=== PATIENT | male | born 1945 | race Caucasian/White ===

== ENCOUNTER 2017-06-23 13:42 | Outpatient (RCR) | payer MEDICARE, OTHER | END 2017-07-25 16:31 | LOC: WSPT 13:42 | DX: Z89.511 Acquired absence of right leg below knee (principal) | CPT/HCPCS: G8978-GP; G8979-GP; G8980-GP ==

== ENCOUNTER → 2017-07-03 | Outpatient (CLI) | payer MEDICARE, OTHER | LOC: WCC 10:18 | DX: L89.892 Pressure ulcer of other site, stage 2 (principal); M05.20 Rheumatoid vasculitis with rheumatoid arthritis of unspecified site; Z89.511 Acquired absence of right leg below knee; Z79.02 Long term (current) use of antithrombotics/antiplatelets; Z79.82 Long term (current) use of aspirin | CPT/HCPCS: 16847; 17716; 17717; 27510; A6197; A6212; G0463 ==

== ENCOUNTER → 2017-07-09 | Outpatient (CLI) | payer MEDICARE, OTHER | LOC: WCC 08:52 | DX: L89.892 Pressure ulcer of other site, stage 2 (principal); M06.9 Rheumatoid arthritis, unspecified; Z89.511 Acquired absence of right leg below knee | CPT/HCPCS: 17717; A6212; G0463 ==

== ENCOUNTER → 2017-07-16 | Outpatient (CLI) | payer MEDICARE, OTHER | LOC: WCC 08:50 | DX: L89.892 Pressure ulcer of other site, stage 2 (principal); Z89.511 Acquired absence of right leg below knee | CPT/HCPCS: 16847; 17717; A6212; G0463 ==

== ENCOUNTER → 2017-07-23 | Outpatient (CLI) | payer MEDICARE, OTHER | LOC: WCC 08:16 | DX: L97.819 Non-pressure chronic ulcer of other part of right lower leg with unspecified severity (principal); M06.9 Rheumatoid arthritis, unspecified; Z89.511 Acquired absence of right leg below knee | CPT/HCPCS: 16847; 17717; A6212; G0463 ==

== ENCOUNTER → 2017-07-30 | Outpatient (CLI) | payer MEDICARE, OTHER | LOC: WCC 08:32 | DX: L89.892 Pressure ulcer of other site, stage 2 (principal); Z89.511 Acquired absence of right leg below knee; M06.9 Rheumatoid arthritis, unspecified | CPT/HCPCS: 17716; A6212; G0463 ==

== ENCOUNTER → 2017-08-01 | Outpatient (CLI) | payer MEDICARE, OTHER | LOC: WCC 08:52 | DX: L89.892 Pressure ulcer of other site, stage 2 (principal); Z89.511 Acquired absence of right leg below knee | CPT/HCPCS: 17717; 27517; A6207; A6212; G0463 ==

== ENCOUNTER → 2017-08-08 | Outpatient (CLI) | payer MEDICARE, OTHER | LOC: WCC 08-04 09:40 | DX: L89.892 Pressure ulcer of other site, stage 2 (principal); Z89.511 Acquired absence of right leg below knee | CPT/HCPCS: 17717; A6212; G0463 ==

== ENCOUNTER → 2017-08-15 | Outpatient (CLI) | payer MEDICARE, OTHER | LOC: WCC 08:16 | DX: L89.892 Pressure ulcer of other site, stage 2 (principal); Z89.511 Acquired absence of right leg below knee | CPT/HCPCS: 17717; 21064; A6021; A6212; G0463 ==

== ENCOUNTER → 2017-08-22 | Outpatient (CLI) | payer MEDICARE, OTHER | LOC: WCC 08:37 | DX: L89.892 Pressure ulcer of other site, stage 2 (principal); Z89.511 Acquired absence of right leg below knee | CPT/HCPCS: 17717; 27510; A6197; A6212; G0463 ==

== ENCOUNTER → 2017-08-28 | Outpatient (CLI) | payer MEDICARE, OTHER | LOC: WCC 09:22 | DX: L89.892 Pressure ulcer of other site, stage 2 (principal); Z89.511 Acquired absence of right leg below knee | CPT/HCPCS: 17717; A6212; G0463 ==

== ENCOUNTER → 2017-09-03 | Outpatient (CLI) | payer MEDICARE, OTHER | LOC: WCC 12:51 | DX: L89.899 Pressure ulcer of other site, unspecified stage (principal); Z89.511 Acquired absence of right leg below knee | CPT/HCPCS: G0463 ==

== ENCOUNTER 2017-10-22 17:58 | Inpatient (IN) | payer MEDICARE, OTHER ==
[~2017-10-22] VITALS: Ht 177.8 cm; Wt 94.3 kg
[2017-10-22] MEDS ORDERED: PLAVIX 75MG TAB75 MG PO (18:17)
[2017-10-22] MEDS ORDERED: ASPIRIN 81M81 MG/TA2 PO (18:17)
[2017-10-22] MEDS ORDERED: PRIL40 PO (18:17)
[2017-10-22] MEDS ORDERED: METHOTREXA2.5 MG/TAB PO (18:18)
[2017-10-22] MEDS ORDERED: PROAIR HFA0.09 MG/AC IH (18:18)
[2017-10-22 18:51] LABS: BASO # 0.1 (0.0-0.2); EOS % 0.6 % (0-4.0); GRAN # 5.3 (1.4-6.5); HEMOGLOBIN 17.5 g/dl (13.5-18.0); LYMPH # 0.4 (1.2-3.4); LYMPH % 7.1 % (20.0-51.0); MEAN CELL VOLUME 94 fl (80.0-100.0); MEAN CORPUSCULAR HEMOGLOBIN 32 pg (27.0-31.0); MEAN CORPUSCULAR HGB CONC 34 g/dl (33.0-37.0); MEAN PLATELET VOLUME 9.1 fl (7.4-10.4); MONO # 0.3 (0.1-0.6); PLATELET COUNT 110 K/mm3 (130-400); RED BLOOD COUNT 5.41 M/mm3 (4.20-5.60); WHITE BLOOD COUNT 6.2 K/mm3 (4.8-10.8)
[2017-10-22 18:58] LABS: ALANINE AMINOTRANSFERASE 62 U/L (21-72); ALBUMIN 4.9 gm/dL (3.5-5.0); ALKALINE PHOSPHATASE 78 U/L (50-136); ANION GAP 11 mmol/L (7-16); BILIRUBIN,TOTAL 1.8 mg/dL (0.0-1.0); BLOOD UREA NITROGEN 19 mg/dL (9-20); C-REACTIVE PROTEIN < 0.5 mg/dL (0.0-0.9); CALCIUM 9.7 mg/dL (8.4-10.2); CARBON DIOXIDE 26 mmol/L (22-30); CHLORIDE 103 mmol/L (98-107); CREATININE, serum 1.15 mg/dL (0.66-1.25); GLUCOSE 156 mg/dL (74-106); LIPASE 51 U/L (23-300); POTASSIUM 4.6 mmol/L (3.4-5.0); SODIUM 139 mmol/L (137-145)
[2017-10-22 20:38] LABS: COLLECTION METHOD CLEAN CATCH
[2017-10-22 20:45] LABS: MUCOUS Present /lpf; PH 6 (5-8); SQUAMOUS EPITHELIAL None Seen /hpf; URINE APPEARANCE Clear; URINE BACTERIA None Seen /hpf; URINE BILIRUBIN Negative (NEGATIVE); URINE BLOOD Negative (NEGATIVE); URINE COLOR Yellow; URINE GLUCOSE Negative (NEGATIVE); URINE KETONE Negative (NEGATIVE); URINE LEUKOCYTE ESTERASE Negative (NEGATIVE); URINE PROTEIN(semi-quant) Negative (NEGATIVE); URINE RBC 0-2 /hpf; URINE UROBILINOGEN Negative (NEGATIVE); URINE WBC 0-2 /hpf
[2017-10-22 21:51] VITALS: BP 186/97; PULSE 95; TEMP 97.5
[2017-10-22] MEDS ORDERED: RT ADVAIR 228 DISKUS IH (22:30)
[2017-10-22 22:57] VITALS: BP 170/91
[2017-10-23] VITALS (11 sets, daily range): BP systolic 117–169; BP diastolic 59–87; PULSE 81–101; TEMP 98–98.5
[2017-10-23 07:11] LABS: BASO % 0.6 % (0.0-2.0); EOS % 0.2 % (0-4.0); GRAN # 4.2 (1.4-6.5); GRAN % 82.6 % (42.2-75.2); HEMATOCRIT 49.1 % (42.0-52.0); HEMOGLOBIN 16.5 g/dl (13.5-18.0); LYMPH # 0.4 (1.2-3.4); LYMPH % 7.1 % (20.0-51.0); MEAN CELL VOLUME 95 fl (80.0-100.0); MEAN CORPUSCULAR HEMOGLOBIN 32 pg (27.0-31.0); MEAN CORPUSCULAR HGB CONC 34 g/dl (33.0-37.0); MONO # 0.5 (0.1-0.6); MONO % 9.1 % (1.7-9.3); PLATELET COUNT 135 K/mm3 (130-400); RED BLOOD COUNT 5.16 M/mm3 (4.20-5.60); WHITE BLOOD COUNT 5.1 K/mm3 (4.8-10.8)
[2017-10-23 07:21] LABS: CALCIUM 9.3 mg/dL (8.4-10.2); CREATININE, serum 0.93 mg/dL (0.66-1.25); POTASSIUM 3.8 mmol/L (3.4-5.0)
[2017-10-24 05:45] VITALS: BP 129/63; PULSE 77; TEMP 98.5
[2017-10-24 07:47] VITALS: BP 119/66; PULSE 77; TEMP 97.9
[2017-10-24] MEDS ORDERED: ZOFRAN ODT4 MG PO (10:17)
== END 2017-10-24 11:40 | disposition home or self-care (01) | DRG 390 ==
LOC: COL.ER 17:58 → SURG 19:54
PROVIDERS: Emergency Medicine; Nurse Practitioner Family
PROC: 0D9670Z Drainage of Stomach with Drainage Device, Via Natural or Artificial Opening (ICD-10-PCS; principal; 2017-10-22)
DX: K56.600 Partial intestinal obstruction, unspecified as to cause (principal); I10 Essential (primary) hypertension; Z86.718 Personal history of other venous thrombosis and embolism; Z79.01 Long term (current) use of anticoagulants; Z86.711 Personal history of pulmonary embolism; M06.9 Rheumatoid arthritis, unspecified; Z89.511 Acquired absence of right leg below knee; J45.909 Unspecified asthma, uncomplicated; I73.9 Peripheral vascular disease, unspecified; Z85.6 Personal history of leukemia; Z87.891 Personal history of nicotine dependence; D69.6 Thrombocytopenia, unspecified; R73.9 Hyperglycemia, unspecified
CPT/HCPCS: 99222-AI; 99239; A9284; C9113; J0360; J1170; J1650; J2405; J7030; J7050; Q9967

== ENCOUNTER 2017-11-14 13:30 | Outpatient (RCR) | payer MEDICARE, OTHER ==
[~2017-11-14 13:30] MED LIST: ASPIRIN 81M81 MG/TA2 PO; METHOTREXA2.5 MG/TAB PO; PLAVIX 75MG TAB75 MG PO; PRIL40 PO; PROAIR HFA0.09 MG/AC IH; RT ADVAIR 228 DISKUS IH; ZOFRAN ODT4 MG PO
== END 2017-11-21 15:43 | disposition home or self-care (01) ==
LOC: WSPT 13:30
DX: Z47.81 Encounter for orthopedic aftercare following surgical amputation (principal); Z89.511 Acquired absence of right leg below knee; Z97.13 Presence of artificial right leg (complete) (partial); Z79.01 Long term (current) use of anticoagulants; Z79.82 Long term (current) use of aspirin
CPT/HCPCS: G8978-GP; G8979-GP; G8980-GP

== ENCOUNTER → 2017-11-20 | Outpatient (CLI) | payer MEDICARE, OTHER | LOC: COL.PUL 09:39 | DX: J44.9 Chronic obstructive pulmonary disease, unspecified (principal) ==

== ENCOUNTER 2018-02-25 15:04 | Inpatient (IN) | payer MEDICARE, OTHER ==
[~2018-02-25] VITALS: Ht 177.8 cm; Wt 94.6 kg
[2018-02-25 16:11] LABS: BASO % 0.9 % (0.0-2.0); EOS # 0.1 (0.0-0.7); EOS % 3.1 % (0-4.0); GRAN # 3.3 (1.4-6.5); GRAN % 71.7 % (42.2-75.2); HEMATOCRIT 44.8 % (42.0-52.0); HEMOGLOBIN 15.4 g/dl (13.5-18.0); LYMPH # 0.8 (1.2-3.4); LYMPH % 16.6 % (20.0-51.0); MEAN CELL VOLUME 92 fl (80.0-100.0); MEAN CORPUSCULAR HEMOGLOBIN 32 pg (27.0-31.0); MEAN CORPUSCULAR HGB CONC 34 g/dl (33.0-37.0); MEAN PLATELET VOLUME 8.8 fl (7.4-10.4); MONO # 0.3 (0.1-0.6); PLATELET COUNT 130 K/mm3 (130-400); RED BLOOD COUNT 4.88 M/mm3 (4.20-5.60); REDCELL DISTRIBUTION WIDTH-CV 15.1 % (11.5-14.5)
[2018-02-25 16:24] LABS: ALBUMIN 3.8 gm/dL (3.5-5.0); BILIRUBIN,TOTAL 0.6 mg/dL (0.0-1.0); CALCIUM 8.9 mg/dL (8.4-10.2); CREATININE, serum 1.04 mg/dL (0.66-1.25); POTASSIUM 4.4 mmol/L (3.4-5.0); TOTAL PROTEIN 7.1 gm/dL (6.4-8.2)
[2018-02-25] MEDS ORDERED: CLEOCIN HCL300 MG PO (16:54)
[2018-02-25] MEDS ORDERED: MUCINEX 60600 MG/TA1 PO (16:55)
[2018-02-25 19:08] VITALS: BP 172/88; PULSE 103; TEMP 97.6
[2018-02-26] VITALS (9 sets, daily range): BP systolic 110–170; BP diastolic 34–131; PULSE 52–85; TEMP 97.1–97.9
[2018-02-26 06:30] LABS: BASO % 0.9 % (0.0-2.0); EOS # 0.1 (0.0-0.7); EOS % 2.8 % (0-4.0); GRAN # 1.9 (1.4-6.5); HEMATOCRIT 42.4 % (42.0-52.0); HEMOGLOBIN 14.5 g/dl (13.5-18.0); LYMPH # 0.8 (1.2-3.4); LYMPH % 25.2 % (20.0-51.0); MEAN CELL VOLUME 92 fl (80.0-100.0); MEAN CORPUSCULAR HEMOGLOBIN 32 pg (27.0-31.0); MEAN CORPUSCULAR HGB CONC 34 g/dl (33.0-37.0); MONO # 0.3 (0.1-0.6); MONO % 9.5 % (1.7-9.3); PLATELET COUNT 109 K/mm3 (130-400); REDCELL DISTRIBUTION WIDTH-CV 15.1 % (11.5-14.5)
[2018-02-26 06:31] LABS: CALCIUM 8.6 mg/dL (8.4-10.2); CREATININE, serum 0.96 mg/dL (0.66-1.25); POTASSIUM 4.1 mmol/L (3.4-5.0)
[2018-02-27 00:37] VITALS: BP 145/74; PULSE 89; TEMP 98.9
[2018-02-27 06:17] VITALS: BP 131/85; PULSE 77; TEMP 97.7
[2018-02-27 06:43] LABS: BASO % 0.9 % (0.0-2.0); EOS # 0.1 (0.0-0.7); EOS % 3.5 % (0-4.0); GRAN # 2.2 (1.4-6.5); GRAN % 64.8 % (42.2-75.2); HEMATOCRIT 43.9 % (42.0-52.0); HEMOGLOBIN 14.7 g/dl (13.5-18.0); LYMPH # 0.7 (1.2-3.4); LYMPH % 21.7 % (20.0-51.0); MEAN CELL VOLUME 93 fl (80.0-100.0); MEAN CORPUSCULAR HEMOGLOBIN 31 pg (27.0-31.0); MEAN CORPUSCULAR HGB CONC 34 g/dl (33.0-37.0); MEAN PLATELET VOLUME 9.3 fl (7.4-10.4); MONO # 0.3 (0.1-0.6); MONO % 8.5 % (1.7-9.3); PLATELET COUNT 108 K/mm3 (130-400); RED BLOOD COUNT 4.71 M/mm3 (4.20-5.60); REDCELL DISTRIBUTION WIDTH-CV 15.3 % (11.5-14.5)
[2018-02-27 07:02] LABS: CALCIUM 8.7 mg/dL (8.4-10.2); CREATININE, serum 0.97 mg/dL (0.66-1.25); POTASSIUM 3.9 mmol/L (3.4-5.0)
[2018-02-27] MEDS ORDERED: CEPHALEXIN500 M1 PO (09:19)
== END 2018-02-27 10:15 | disposition home or self-care (01) | DRG 256 ==
LOC: COL.ER 15:04 → SURG 18:02
PROVIDERS: Emergency Medicine; Nurse Practitioner; Orthopaedic Surgery; Physician Assistant
PROC: 0Y6S0Z1 Detachment at Left 2nd Toe, High, Open Approach (ICD-10-PCS; principal; 2018-02-26 12:00)
DX: I70.245 Atherosclerosis of native arteries of left leg with ulceration of other part of foot (principal); C91.10 Chronic lymphocytic leukemia of B-cell type not having achieved remission; L03.032 Cellulitis of left toe; I10 Essential (primary) hypertension; L97.528 Non-pressure chronic ulcer of other part of left foot with other specified severity; B95.61 Methicillin susceptible Staphylococcus aureus infection as the cause of diseases classified elsewhere; D69.6 Thrombocytopenia, unspecified; M06.9 Rheumatoid arthritis, unspecified; Z91.19 Patient's noncompliance with other medical treatment and regimen; Z89.511 Acquired absence of right leg below knee; Z86.711 Personal history of pulmonary embolism; Z79.01 Long term (current) use of anticoagulants; Z87.891 Personal history of nicotine dependence
CPT/HCPCS: 99223-AI; 99238; A9284; J0692; J2704; J3010; J3370; J7030; J7050

== ENCOUNTER → 2018-08-20 | Outpatient (CLI) | payer MEDICARE, OTHER ==
[~2018-08-20] MED LIST changes: +CEPHALEXIN500 M1 PO; +CLEOCIN HCL300 MG PO; +MUCINEX 60600 MG/TA1 PO
== END ==
LOC: COL.RAD 08:04
DX: Z13.6 Encounter for screening for cardiovascular disorders (principal)

== ENCOUNTER 2019-02-12 16:14 | Inpatient (IN) | payer MEDICARE, OTHER ==
[~2019-02-12] VITALS: Ht 177.8 cm; Wt 91.5 kg
[2019-02-12 16:48] LABS: BASO # 0.1 (0.0-0.2); BASO % 0.8 % (0.0-2.0); EOS # 0.1 (0.0-0.7); EOS % 1.1 % (0-4.0); GRAN # 5.8 (1.4-6.5); GRAN % 81.9 % (42.2-75.2); LYMPH # 0.7 (1.2-3.4); LYMPH % 10.3 % (20.0-51.0); MEAN CELL VOLUME 93 fl (80.0-100.0); MEAN CORPUSCULAR HGB CONC 35 g/dl (33.0-37.0); MEAN PLATELET VOLUME 9.3 fl (7.4-10.4); MONO # 0.4 (0.1-0.6); MONO % 5.6 % (1.7-9.3); PLATELET COUNT 106 K/mm3 (130-400); RED BLOOD COUNT 5.67 M/mm3 (4.20-5.60); REDCELL DISTRIBUTION WIDTH-CV 16.6 % (11.5-14.5)
[2019-02-12 16:49] LABS: HEMATOCRIT 52.8 % (42.0-52.0); HEMOGLOBIN 18.6 g/dl (13.5-18.0); MEAN CORPUSCULAR HEMOGLOBIN 33 pg (27.0-31.0)
[2019-02-12 17:00] LABS: ALANINE AMINOTRANSFERASE 27 U/L (21-72); ALBUMIN 4.8 gm/dL (3.5-5.0); ALKALINE PHOSPHATASE 83 U/L (50-136); ANION GAP 13 mmol/L (7-16); AST,SGOT 38 U/L (15-37); BILIRUBIN,TOTAL 1.8 mg/dL (0.0-1.0); BLOOD UREA NITROGEN 21 mg/dL (9-20); C-REACTIVE PROTEIN 0.7 mg/dL (0.0-0.9); CALCIUM 9.9 mg/dL (8.4-10.2); CARBON DIOXIDE 23 mmol/L (22-30); CHLORIDE 101 mmol/L (98-107); GLUCOSE 139 mg/dL (74-106); LIPASE 69 U/L (23-300); POTASSIUM 4.2 mmol/L (3.4-5.0); SODIUM 137 mmol/L (137-145); TOTAL PROTEIN 8.3 gm/dL (6.4-8.2)
[2019-02-12 17:10] LABS: TROPONIN-I < 0.012 ng/mL (0.000-0.035)
[2019-02-12] MEDS ORDERED: METHOTREXA2.5 MG/TAB PO (18:19)
[2019-02-12 20:00] VITALS: BP 137/82; PULSE 88; TEMP 97.8
[2019-02-12 20:20] LABS: COLLECTION METHOD CLEAN CATCH
--- NOTE | 2019-02-12 20:20 | NUR ---
Patient arrived to surgical floor at approximately 1915. Patient assessed. Hypoactive bowel sounds. Complaining of abdominal pain, rated as a 7, and comlaining of nausea. Given PRN Zofran and Morphine as requested. UA obtained and taken to lab. Patient had approximately 800 mls of emesis, brown in color. Declined wanting NG tube to be placed at time of assessment, will reapproach. Denie having SOB and dyspnea. 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 Stump does have a dry callous, and patient states it has been there. Patient given urinal and emesis basin. Educated on use of call light as well as bed controls. Voices no needs or concerns at this time.
[2019-02-12 20:34] LABS: MUCOUS Present /lpf; PH 5 (5-8); SQUAMOUS EPITHELIAL None Seen /hpf; URINE APPEARANCE Clear; URINE BACTERIA None Seen /hpf; URINE BILIRUBIN Negative (NEGATIVE); URINE BLOOD Negative (NEGATIVE); URINE COLOR Yellow; URINE GLUCOSE Negative (NEGATIVE); URINE KETONE Negative (NEGATIVE); URINE LEUKOCYTE ESTERASE Negative (NEGATIVE); URINE NITRATE Negative (NEGATIVE); URINE PROTEIN(semi-quant) Negative (NEGATIVE); URINE RBC 0-2 /hpf; URINE UROBILINOGEN Negative (NEGATIVE)
[2019-02-12 21:06] VITALS: BP 137/82; PULSE 88; TEMP 97.8
--- NOTE | 2019-02-12 22:33 | NUR ---
NG tube placed at this time to right nostril. At 55 cm rocky. Secured to nose. On low intermittent suction. Patient tolerated well. Denie having any needs or concerns at this time. Call light is within reach.
[2019-02-12 23:39] VITALS: BP 160/98; PULSE 105; TEMP 97.4
--- NOTE | 2019-02-13 00:04 | NUR ---
Patient tolerating NG tube with intermittent low suction well. Denies having pain and discomfort. Continues to suction brown/yellow contents at this time. Patient has remained NPO. LR continues per orders. No further emesis. Denies having any needs or concerns at this time. Call light is within reach.
[2019-02-13 03:52] VITALS: BP 100/64; PULSE 107; TEMP 99.7
--- NOTE | 2019-02-13 06:05 | NUR ---
Continues to be tolerating NG tube well. Contents have been brown in color, and are now changing to more of a green color. Denies having nausea. Does have an aching pain to abdomen, rated as a 5. Patient has not had any BM this shift. Has been using bedside urinal. Denies having any needs or concerns at this time. Sitting up in bed, call light is within reach.
[2019-02-13 07:52] LABS: HEMATOCRIT 49.6 % (42.0-52.0); HEMOGLOBIN 16.9 g/dl (13.5-18.0); MEAN CELL VOLUME 95 fl (80.0-100.0); MEAN CORPUSCULAR HEMOGLOBIN 32 pg (27.0-31.0); MEAN CORPUSCULAR HGB CONC 34 g/dl (33.0-37.0); MEAN PLATELET VOLUME 9.8 fl (7.4-10.4); PLATELET COUNT 115 K/mm3 (130-400); RED BLOOD COUNT 5.23 M/mm3 (4.20-5.60); REDCELL DISTRIBUTION WIDTH-CV 16.4 % (11.5-14.5)
[2019-02-13 08:05] LABS: CREATININE, serum 1.45 (0.66-1.25)
[2019-02-13 08:09] LABS: POTASSIUM 4.3 mmol/L (3.4-5.0)
[2019-02-13 08:26] VITALS: BP 110/66; PULSE 94; TEMP 98
[2019-02-13 11:38] VITALS: BP 107/56; PULSE 86; TEMP 98.2
--- NOTE | 2019-02-13 11:56 | NUR ---
Visited with the patient, talked about his past problems with blood clots and the amputation of his leg. Provided spiritual care and prayed with him.
--- NOTE | 2019-02-13 14:56 | NUR ---
Plan: Patient reports that his plan is to return home. Assessment: SW met with patient about DC plan. Patient reports that his care support is his DTR Clemencia Tellez . Patient reports his PCP is Fadumo Durand and he uses [facility] for RX. Patient reports having a prothestic leg but denies any other DME use. Patient shares that he has inhalers prx by DR. Patient reports that his grandson will transport him home. Indicated that he live [place] outside of town. Patient reports that POA is his DTR. Patient denies the use or need for home health services. Action: SW did not identify any other concerns. SW educated patient of resources in area.
[2019-02-13 16:20] VITALS: BP 124/67; PULSE 87; TEMP 97.5
[2019-02-13 19:29] VITALS: BP 104/61; PULSE 90; TEMP 98.2
--- NOTE | 2019-02-13 20:41 | NUR ---
Patient assessed. Denies having pain and discomfort. Reports feelings much better today than yesterday. Denies having any nausea. Skin color is no longer pale. NG tube continues on low intermittent suction per orders. Contents are green in color. Continues to be NPO. Bowel sounds are active x 4. Abdomen is round, soft, non-distended, and non-tender. Reports he has has multiple large loose BMs in the past few hours. LR continues to peripheral IV to left hand per orders. Denies having any needs or concerns at this time. Resting in bed at this time. Call light is within reach.
[2019-02-14 00:05] VITALS: BP 124/71; PULSE 87; TEMP 97.5
--- NOTE | 2019-02-14 00:07 | NUR ---
Patient given PRN APAP for generalized pain as requested. NG suction turned off for approximately 30 minutes after medication was taken, then turned back on. Resting in bed with eyes closed at this time. Call light is within reach.
[2019-02-14 04:33] VITALS: BP 127/57; PULSE 61; TEMP 98.4
--- NOTE | 2019-02-14 06:19 | NUR ---
Continues to deny having pain and discomfort. No further bowel movements this shift. Denies having nausea and upset stomach. NG tube in place and tolerating well. Resting in bed with eyes closed at this time. Call light is within reach.
[2019-02-14 07:30] LABS: HEMATOCRIT 41.8 % (42.0-52.0); MEAN CELL VOLUME 97 fl (80.0-100.0); MEAN CORPUSCULAR HEMOGLOBIN 32 pg (27.0-31.0); MEAN CORPUSCULAR HGB CONC 33 g/dl (33.0-37.0); MEAN PLATELET VOLUME 9.7 fl (7.4-10.4); PLATELET COUNT 81 K/mm3 (130-400); RED BLOOD COUNT 4.31 M/mm3 (4.20-5.60); REDCELL DISTRIBUTION WIDTH-CV 16.2 % (11.5-14.5)
[2019-02-14 07:34] LABS: HEMOGLOBIN 13.8 g/dl (13.5-18.0)
[2019-02-14 07:37] LABS: CALCIUM 8.5 mg/dL (8.4-10.2); CREATININE, serum 1.29 (0.66-1.25); POTASSIUM 3.6 mmol/L (3.4-5.0)
[2019-02-14 07:58] VITALS: BP 131/62; PULSE 82; TEMP 97.3
--- NOTE | 2019-02-14 09:00 | NUR ---
Dr. Nieto saw patient. No c/o pain or nausea. MARGE nogueira'bren. Started on clear liquids slowly.
[2019-02-14 11:28] VITALS: BP 128/67; PULSE 82; TEMP 97.8
[2019-02-14 15:37] VITALS: BP 129/93; PULSE 95; TEMP 98.6
--- NOTE | 2019-02-14 18:00 | NUR ---
Took low fiber diet without nausea or abdominal pain. Ambulated in halls with standby assist. Had one loose stool. Dismissed to home with daughter.
== END 2019-02-14 18:00 | disposition home or self-care (01) | DRG 390 ==
LOC: COL.ER 16:14 → SURG 18:03
PROVIDERS: Emergency Medicine; ADMIT Surgery
PROC: 0D9670Z Drainage of Stomach with Drainage Device, Via Natural or Artificial Opening (ICD-10-PCS; principal; 2019-02-12)
DX: K56.600 Partial intestinal obstruction, unspecified as to cause (principal); Z66 Do not resuscitate; E86.0 Dehydration; I10 Essential (primary) hypertension; I73.9 Peripheral vascular disease, unspecified; M06.9 Rheumatoid arthritis, unspecified; Z89.511 Acquired absence of right leg below knee; J45.909 Unspecified asthma, uncomplicated; Z87.891 Personal history of nicotine dependence; Z86.711 Personal history of pulmonary embolism; Z79.01 Long term (current) use of anticoagulants; Z85.6 Personal history of leukemia
CPT/HCPCS: J1650; J2270; J2405; J3010; J7030; J7120; Q9967

== ENCOUNTER 2020-01-31 16:58 | Inpatient (IN) | payer MEDICARE, OTHER ==
[~2020-01-31] VITALS: Ht 177.8 cm; Wt 90.2 kg
[2020-01-31] VITALS (93 sets, daily range): O2SAT 86–98
[2020-01-31 18:16] LABS: HEMATOCRIT 48.3 % (42.0-52.0); HEMOGLOBIN 15.8 g/dl (13.5-18.0); MEAN CELL VOLUME 98 fl (80.0-100.0); MEAN CORPUSCULAR HEMOGLOBIN 32 pg (27.0-31.0); MEAN CORPUSCULAR HGB CONC 33 g/dl (33.0-37.0); MEAN PLATELET VOLUME 9.3 fl (7.4-10.4); PLATELET COUNT 95 K/mm3 (130-400); RED BLOOD COUNT 4.95 M/mm3 (4.20-5.60); REDCELL DISTRIBUTION WIDTH-CV 16.3 % (11.5-14.5)
[2020-01-31 18:23] LABS: ALBUMIN 3.9 gm/dL (3.5-5.0); BILIRUBIN,TOTAL 3.4 mg/dL (0.0-1.0); CALCIUM 8.7 mg/dL (8.4-10.2); CREATININE, serum 1.7 (0.66-1.25); POTASSIUM 4.5 mmol/L (3.4-5.0); TOTAL PROTEIN 6.6 gm/dL (6.4-8.2)
[2020-01-31 19:18] LABS: BAND 26 % (0-10); LYMPHOCYTE 5 % (20.0-51.0); NEUTROPHILS 67 % (42.0-75.2)
[2020-01-31 19:20] LABS: PLATELET ESTIMATE DECREASED (NORMAL)
[2020-01-31 19:21] LABS: ANISOCYTOSIS 1+; HYPOCHROMIA 1+
[2020-01-31 19:33] LABS: ARTERIAL BLOOD GAS BASE EXCESS -4.6 (-2-2); ARTERIAL BLOOD GAS HCO3 19.1 meq/L (22-26); ARTERIAL BLOOD GAS PCO2 31.9 mmHg (35-45)
[2020-01-31 20:33] LABS: COLLECTION METHOD CLEAN CATCH
[2020-01-31 21:13] LABS: MUCOUS Present /lpf; PH 5 (5-8); SQUAMOUS EPITHELIAL 0-2 /hpf; URINE APPEARANCE Hazy; URINE BACTERIA None Seen /hpf; URINE BILIRUBIN Negative (NEGATIVE); URINE BLOOD Negative (NEGATIVE); URINE COLOR Amber; URINE GLUCOSE Negative (NEGATIVE); URINE KETONE Negative (NEGATIVE); URINE LEUKOCYTE ESTERASE Negative (NEGATIVE); URINE NITRATE Negative (NEGATIVE); URINE PROTEIN(semi-quant) 1+ (NEGATIVE); URINE RBC 0-2 /hpf; URINE UROBILINOGEN Negative (NEGATIVE)
--- NOTE | 2020-01-31 22:00 | NUR ---
Patient arrives at this time via ED cart. Patient transfers self to unit bed via slide. He is very tachypneic and SOA. 5L NC. Patient clothes removed and placed in a yellow gown. HOB elevated to 60 degrees. Vitals are stable. Assessment complete in admission B. Med rec and allergies complete. Central line placed by Dr. Quintanilla. Time out completed. Browning catheter also placed. Patient tolerated well, urine return noted. Securement device in place. Patient placed on Airvo. No further needs at this time. Will continue to monitor. Call light within reach.
--- NOTE | 2020-01-31 23:20 | NUR ---
AirVo2 high flow nasal cannula started at this time. Pt's WOB decreased and respirations decreased from 30s to 20s.
[2020-01-31 23:51] LABS: INR 1.5 (0.8-3.0); PROTHROMBIN TIME 17.6 SECONDS (9.7-12.8)
[2020-02-01] VITALS (1099 sets, daily range): BP systolic 92–150; BP diastolic 65–96; PULSE 102–125; TEMP 97.7–101.6; O2SAT 71–100
[2020-02-01 02:34] LABS: ARTERIAL BLD GAS TCO2 CT 18.4; ARTERIAL BLOOD GAS BASE EXCESS -5.7 (-2-2); ARTERIAL BLOOD GAS HCO3 17.5 meq/L (22-26); ARTERIAL BLOOD GAS PCO2 28.9 mmHg (35-45); ARTERIAL BLOOD GAS PO2 86.3 mmHg (80-100)
[2020-02-01 04:24] LABS: HEMATOCRIT 42.5 % (42.0-52.0); MEAN CELL VOLUME 101 fl (80.0-100.0); MEAN CORPUSCULAR HEMOGLOBIN 32 pg (27.0-31.0); MEAN CORPUSCULAR HGB CONC 32 g/dl (33.0-37.0); MEAN PLATELET VOLUME 9.7 fl (7.4-10.4); PLATELET COUNT 66 K/mm3 (130-400); RED BLOOD COUNT 4.21 M/mm3 (4.20-5.60); REDCELL DISTRIBUTION WIDTH-CV 16.6 % (11.5-14.5)
[2020-02-01 04:44] LABS: ALBUMIN 3.3 gm/dL (3.5-5.0); BILIRUBIN,TOTAL 2.3 mg/dL (0.0-1.0); CREATININE, serum 1.56 (0.66-1.25); POTASSIUM 4.9 mmol/L (3.4-5.0); TOTAL PROTEIN 5.7 gm/dL (6.4-8.2)
[2020-02-01 04:49] LABS: PROTHROMBIN TIME 23.3 SECONDS (9.7-12.8)
[2020-02-01 04:51] LABS: HEMOGLOBIN 13.5 g/dl (13.5-18.0)
--- NOTE | 2020-02-01 05:00 | NUR ---
Patient is much better this morning. He is completely alert and oreinted now when he was having some confusion during the night. He is able to answer all questions appropriately. Water provided. Vitals have remained stable and heart rate has improved. no further needs at this time. Will continue to monitor. Call light within reach.
[2020-02-01 05:37] LABS: BAND 21 % (0-10); LYMPHOCYTE 23 % (20.0-51.0); METAMYELOCYTE 7 % (0-0); MYELOCYTE 1 % (0-0); NEUTROPHILS 38 % (42.0-75.2); PLATELET ESTIMATE DECREASED (NORMAL)
[2020-02-01 05:42] LABS: ARTERIAL BLD GAS O2 SATURATION 94.9 % (92-100); ARTERIAL BLD GAS TCO2 CT 20.1; ARTERIAL BLOOD GAS BASE EXCESS -6.9 (-2-2); ARTERIAL BLOOD GAS HCO3 18.9 meq/L (22-26); ARTERIAL BLOOD GAS PCO2 38.7 mmHg (35-45); ARTERIAL BLOOD GAS PO2 82.3 mmHg (80-100); ARTERIAL BLOOD GAS pH 7.31 (7.35-7.45)
--- NOTE | 2020-02-01 07:25 | NUR ---
Bedside report recieved from ELIN Olivares. Patient on AirVo at 47% and 60L. He denies, dyspnea, pain ,or needs at this time. RIJ triple lumen with dressing reinforced with plastic tape noted to neck. MIVF running at ordered rate. Browning to dependent drainage with positive UO.
--- NOTE | 2020-02-01 08:30 | NUR ---
Pt has been taking methotrexate as home med with last dose reported on 01/29/2020. This does require chemotherapy precautions be observed for 3 days after administration for urine and 7 days after administration for feces. Phone call to Margie in ICU to advise of this information and required precautions.
--- NOTE | 2020-02-01 08:30 | NUR ---
Dr. Quintanilla rounds at this time. Orders as entered CPOE.
[2020-02-01 08:55] LABS: PATHOLOGY DIFF REVIEW OK
--- NOTE | 2020-02-01 09:53 | NUR ---
Dr. Beard rounds at this time. Orders as entered CPOE.
--- NOTE | 2020-02-01 14:18 | NUR ---
The patient is in isolation. PRODUCTION LINE OPERATOR student contacted the patient's daughter, Nuris to complete initial intake. The patient lives in [place] with Nuris and her family. The patient has a stairlift and is independent with ADLs. The patient's PCP is Dr. Durand and patient receives medications from [facility]. The patient does not have advanced directives in the EMR but Nuris reports they are completed. PRODUCTION LINE OPERATOR student contacted Dr. Durand's office to request a copy if they have them, left message. Nuris states if the PCP office does not have it she can look and bring it in. senior web services developer will continue to follow.
--- NOTE | 2020-02-01 16:04 | NUR ---
Dr. Quintanilla called regarding patient's increasing tachypnea, tachycardia and WOB. Relayed are most recent VBG results. TORB to place patient on BiPap 01/08 RR24 and to repeat VBG and ABG one hour after initiation. RT is notified.
--- NOTE | 2020-02-01 16:30 | NUR ---
Patient placed on BiPap per RT.
[2020-02-01 18:03] LABS: ARTERIAL BLD GAS O2 SATURATION 98.7 % (92-100); ARTERIAL BLD GAS TCO2 CT 17.4; ARTERIAL BLOOD GAS BASE EXCESS -6.1 (-2-2); ARTERIAL BLOOD GAS HCO3 16.7 meq/L (22-26); ARTERIAL BLOOD GAS PCO2 25.9 mmHg (35-45); ARTERIAL BLOOD GAS PO2 116.4 mmHg (80-100); ARTERIAL BLOOD GAS pH 7.43 (7.35-7.45)
--- NOTE | 2020-02-01 18:23 | NUR ---
Dr. Quintanilla called with most recent VBG and ABG results. MD recomendations to encourage patient to use BiPap for NOC shift with brief AirVo breaks. Care ongoing.
--- NOTE | 2020-02-01 19:18 | NUR ---
Bedside report received from ELIN Ham
[2020-02-02] VITALS (1176 sets, daily range): BP systolic 99–112; BP diastolic 72–78; PULSE 89–105; TEMP 98.5–99.2; O2SAT 78–100
--- NOTE | 2020-02-02 | NUR ---
Patient resting on bipap. no changes on exam. No complaints of pain or signs of distress. Vitals are stable. No further needs. Will continue to monitor. Call light within reach.
[2020-02-02 05:13] LABS: MEAN CELL VOLUME 100 fl (80.0-100.0); MEAN CORPUSCULAR HGB CONC 32 g/dl (33.0-37.0); MEAN PLATELET VOLUME 10.6 fl (7.4-10.4); PLATELET COUNT 55 K/mm3 (130-400); RED BLOOD COUNT 3.41 M/mm3 (4.20-5.60)
[2020-02-02 05:20] LABS: HEMATOCRIT 34.2 % (42.0-52.0); MEAN CORPUSCULAR HEMOGLOBIN 32 pg (27.0-31.0)
[2020-02-02 05:21] LABS: INR 1.8 (0.8-3.0); PROTHROMBIN TIME 21.6 SECONDS (9.7-12.8)
[2020-02-02 05:24] LABS: ALBUMIN 2.7 gm/dL (3.5-5.0); CALCIUM 7.8 mg/dL (8.4-10.2); CREATININE, serum 1.13 (0.66-1.25); POTASSIUM 4.2 mmol/L (3.4-5.0); TOTAL PROTEIN 5.2 gm/dL (6.4-8.2)
[2020-02-02 05:35] LABS: ARTERIAL BLD GAS O2 SATURATION 99.2 % (92-100); ARTERIAL BLOOD GAS HCO3 21.9 meq/L (22-26); ARTERIAL BLOOD GAS PCO2 34.9 mmHg (35-45); ARTERIAL BLOOD GAS pH 7.42 (7.35-7.45)
[2020-02-02 05:38] LABS: ARTERIAL BLOOD GAS PO2 161.9 mmHg (80-100)
[2020-02-02 05:42] LABS: BAND 10 % (0-10); EOSINOPHIL 1 % (0-4); LYMPHOCYTE 13 % (20.0-51.0); METAMYELOCYTE 9 % (0-0); MYELOCYTE 1 % (0-0); NEUTROPHILS 66 % (42.0-75.2); PLATELET ESTIMATE DECREASED (NORMAL)
--- NOTE | 2020-02-02 07:16 | NUR ---
Bedside report given to ELIN Philip
--- NOTE | 2020-02-02 09:35 | NUR ---
Quintanilla in to eval. IVF rate decreased to 42ml/hr. Discussed L foot dorsalis pedis and posterior tib pulses RN unable to obtain with doppler. Pt does not have feeling from ankle down. Orders to obtain arterial study. Pt uses bedpa for med loose-paste like stool. Sample obtained for studies.
--- NOTE | 2020-02-02 11:44 | NUR ---
PT AIRVO HIGH FLOW NC DECREASED TO 50L WITH 40% FIO2. PT DANIEL WELL. SPO2 100%, RR 25, HR 102. WILL CONTINUE TO MONITOR
--- NOTE | 2020-02-02 13:24 | NUR ---
PT/OT ordered. manager financial services will continue to follow.
[2020-02-03] VITALS (1080 sets, daily range): BP systolic 90–142; BP diastolic 65–84; PULSE 90–103; TEMP 97.7–100.3; O2SAT 67–100
[2020-02-03 04:36] LABS: ARTERIAL BLD GAS O2 SATURATION 97.6 % (92-100); ARTERIAL BLOOD GAS BASE EXCESS -0.3 (-2-2); ARTERIAL BLOOD GAS HCO3 23.9 meq/L (22-26); ARTERIAL BLOOD GAS PCO2 37.3 mmHg (35-45); ARTERIAL BLOOD GAS PO2 98.6 mmHg (80-100); ARTERIAL BLOOD GAS pH 7.42 (7.35-7.45)
[2020-02-03 06:04] LABS: HEMOGLOBIN 10.3 g/dl (13.5-18.0); MEAN CELL VOLUME 101 fl (80.0-100.0); MEAN CORPUSCULAR HEMOGLOBIN 33 pg (27.0-31.0); MEAN CORPUSCULAR HGB CONC 33 g/dl (33.0-37.0); MEAN PLATELET VOLUME 10.7 fl (7.4-10.4); PLATELET COUNT 60 K/mm3 (130-400); RED BLOOD COUNT 3.15 M/mm3 (4.20-5.60); REDCELL DISTRIBUTION WIDTH-CV 15.9 % (11.5-14.5)
[2020-02-03 06:11] LABS: INR 1.4 (0.8-3.0); PROTHROMBIN TIME 16.9 SECONDS (9.7-12.8)
[2020-02-03 06:13] LABS: HEMATOCRIT 31.7 % (42.0-52.0)
[2020-02-03 06:18] LABS: ALBUMIN 2.7 gm/dL (3.5-5.0); BILIRUBIN,TOTAL 0.8 mg/dL (0.0-1.0); CALCIUM 8.3 mg/dL (8.4-10.2); CREATININE, serum 1.02 (0.66-1.25); POTASSIUM 3.8 mmol/L (3.4-5.0); TOTAL PROTEIN 5.2 gm/dL (6.4-8.2)
--- NOTE | 2020-02-03 07:10 | NUR ---
REPORT GIVEN TO SANDRA HERNANDEZ.
--- NOTE | 2020-02-03 07:10 | NUR ---
Report recieved from ELIN Thibodeaux. Patient sleeping at this time. MIVF running to [facility] triple lumen central line without complication noted. 4LNC O2 in place. Browning output noted to dependent drainage. Bed in low and locked position, call light within reach, rails up x3. Care resumed.
[2020-02-03 07:23] LABS: BAND 14 % (0-10); LYMPHOCYTE 11 % (20.0-51.0); NEUTROPHILS 74 % (42.0-75.2)
[2020-02-03 07:24] LABS: PLATELET ESTIMATE DECREASED (NORMAL)
--- NOTE | 2020-02-03 07:45 | NUR ---
Dr. Noel rounds at this time. MD indicates he will sign off care at this time and patient may follow up as outpatient following stay.
--- NOTE | 2020-02-03 08:15 | NUR ---
Dr. Quintanilla rounds at this time. Orders as entered CPOE.
--- NOTE | 2020-02-03 10:20 | NUR ---
Dr. Beard rounds at this time. Orders as entered CPOE. Katherine, turn operator is consulted regarding patient's isolation status. She approves removal of negative pressure and airborne precautions with maintained droplet precautions. Dr. Beard is agreeable to this.
--- NOTE | 2020-02-03 10:57 | NUR ---
The patient has orders to transfer to medical floor. PT/OT will do evaluations as soon as the patient precautions change. Will continue to monitor.
--- NOTE | 2020-02-03 11:15 | NUR ---
Dr. Quintanilla contacted per request of Katherine mold chipper for opinion and approval to remove patient from airborne precaution. is agreeable with this and maintenance of droplet precautions.
--- NOTE | 2020-02-03 13:56 | NUR ---
Vancomycin Follow-up Pharmacy Note Current regimen: Vancomycin 1.5 gm IV q12h Vancomycin trough: 13.55 Adjustments: Will increase Vancomycin to 1.75 gm IV q12h. Pharmacy will continue to monitor and check a Vancomycin trough on 02/05/20.
--- NOTE | 2020-02-03 15:55 | NUR ---
Dr. Tran calls and is provided update as requested. No new orders recieved.
--- NOTE | 2020-02-03 21:00 | NUR ---
TRANSFER FROM ICU. ORIENTED TO ROOM. ASSESSMENT COMPLETE. DENIES NEEDS AT THIS TIME.
[2020-02-04 04:30] VITALS: BP 135/71; PULSE 98; TEMP 99.4
[2020-02-04 06:32] LABS: HEMOGLOBIN 10.6 g/dl (13.5-18.0); MEAN CELL VOLUME 101 fl (80.0-100.0); MEAN CORPUSCULAR HEMOGLOBIN 32 pg (27.0-31.0); MEAN CORPUSCULAR HGB CONC 32 g/dl (33.0-37.0); MEAN PLATELET VOLUME 10.8 fl (7.4-10.4); PLATELET COUNT 62 K/mm3 (130-400); RED BLOOD COUNT 3.27 M/mm3 (4.20-5.60); REDCELL DISTRIBUTION WIDTH-CV 15.9 % (11.5-14.5)
[2020-02-04 06:46] LABS: CALCIUM 8.5 mg/dL (8.4-10.2); CREATININE, serum 0.9 (0.66-1.25); POTASSIUM 3.7 mmol/L (3.4-5.0)
[2020-02-04 06:47] LABS: HEMATOCRIT 33.1 % (42.0-52.0)
[2020-02-04 07:27] LABS: BAND 20 % (0-10); EOSINOPHIL 1 % (0-4); LYMPHOCYTE 8 % (20.0-51.0); METAMYELOCYTE 5 % (0-0); NEUTROPHILS 53 % (42.0-75.2); NUCLEATED RED BLOOD CELL 1 (0-6); PLATELET ESTIMATE DECREASED (NORMAL)
[2020-02-04 08:14] VITALS: BP 120/69; PULSE 104; TEMP 98
--- NOTE | 2020-02-04 11:25 | NUR ---
JUVE met with the patient to review discharge plan and to discuss PT/OT's recommendation of home with home health, if able. JUVE discussed home health and post-acute rehab. The patient reports that he is probably going to need some post-acute rehab when ready to discharge. JUVE provided the patient with Medicare[employer]'s list of SNF's in the [facility]. The patient reports that he needs to look over the list some and requested that JUVE contact his daughter, Nuris, to review the list with her. JUVE contacted Nuris and updated her on the patient's decision for SNF. She was supportive of his decision. JUVE reviewed Medicare.gov's list with Nuris. Nuris preferred 1) [facility] 2) [facility]. JUVE then met with the patient to inform him of his daughter's preferences. The patient agreed to her preferences. JUVE presented and explained the Patient Choice Form to the patient. The patient chose 1) [facility] 2) [facility]. Patient Choice Form signed by the patient. JUVE consulted IPR Director, Liana. JUVE contacted and faxed a referral to Manav at [facility]. SW awaiting their screens.
[2020-02-04 11:58] VITALS: BP 151/75; PULSE 103; TEMP 98.4
[2020-02-04 16:14] VITALS: BP 174/95; PULSE 100; TEMP 99.7
[2020-02-04 20:01] VITALS: BP 152/85; PULSE 107; TEMP 98.9
--- NOTE | 2020-02-04 21:41 | NUR ---
PT BROUGHT LOTION AND ICE WATER PER PT REQUEST. PT URINAL EMPTIED TWICE, PT STATED "IT'S GETTING EASIER TO URINATE". PT DENIES PAIN OR DISCOMFORT, BED IN LOW POSITION, BIPAP PLACED ON AGAIN AFTER PILLS TAKEN. TABLE AT BEDSIDE ALONG WITH PERSONAL BELONGINGS. WHEEZES HEARD UPON AUSCULATION. NO OTHER NEEDS AT THIS TIME.
[2020-02-04 23:52] VITALS: BP 132/101; BP 142/81; PULSE 98; TEMP 99.1
[2020-02-05 04:02] VITALS: BP 131/77; PULSE 73; TEMP 98.5
--- NOTE | 2020-02-05 05:13 | NUR ---
UNEVENTFUL SHIFT, PT UTILIZED BIPAP, WATER AT BEDSIDE WITH TABLE, BED IN LOWEST POSITION, STILL HAVING PRODUCTIVE COUGH. NO OTHER NEEDS AT THIS TIME.
[2020-02-05 06:57] LABS: HEMOGLOBIN 11.2 g/dl (13.5-18.0); MEAN CELL VOLUME 101 fl (80.0-100.0); MEAN CORPUSCULAR HEMOGLOBIN 32 pg (27.0-31.0); MEAN CORPUSCULAR HGB CONC 32 g/dl (33.0-37.0); MEAN PLATELET VOLUME 10.1 fl (7.4-10.4); PLATELET COUNT 72 K/mm3 (130-400); RED BLOOD COUNT 3.52 M/mm3 (4.20-5.60)
[2020-02-05 07:02] LABS: HEMATOCRIT 35.4 % (42.0-52.0)
[2020-02-05 07:13] LABS: CALCIUM 8.5 mg/dL (8.4-10.2); CREATININE, serum 0.79 (0.66-1.25); POTASSIUM 3.7 mmol/L (3.4-5.0)
[2020-02-05 08:16] VITALS: BP 144/76; PULSE 97; TEMP 98.6
[2020-02-05 10:47] LABS: ANISOCYTOSIS 1+; BAND 7 % (0-10); LYMPHOCYTE 23 % (20.0-51.0); NEUTROPHILS 65 % (42.0-75.2); PLATELET ESTIMATE DECREASED (NORMAL)
[2020-02-05 12:22] VITALS: BP 153/89; PULSE 108; TEMP 100.4
--- NOTE | 2020-02-05 14:51 | NUR ---
SW faxed updates to [facility].
[2020-02-05 15:43] VITALS: TEMP 98.9
--- NOTE | 2020-02-05 17:08 | NUR ---
PT HAS BEEN AWAKE ALL DAY HAS BEEN ON ROOM AIR, SATS AROUND 90%. PT REMAINS COUGHING UP ALOT OF MUCUS THIS SHIFT. HAD A BLOODY NOSE EARILIER THIS AM, GOT PT SOME SALINE NASEL SPRAY. REPEAT CHEST XRAY THIS AM. PT STARTED SOME PREDISONE AND LASIX TODAY. PT HAD LOW GRADE FEVER, NO INTERVENTIONS DONE AND UPON RECHECK PT WAS FEVER FREE. PT HAS BEEN VOIDING WELL AND AFTER LASIX DID HAVE NOTED INCREASE IN URINE AFTERWARDS.
[2020-02-05 19:27] VITALS: BP 140/84; PULSE 102; TEMP 97.9
[2020-02-05 22:43] VITALS: BP 160/87; PULSE 94; TEMP 97.7
[2020-02-06 03:05] VITALS: BP 112/69; PULSE 80; TEMP 99
--- NOTE | 2020-02-06 05:56 | NUR ---
PT AFEBRILE. NO DYSPNEA AT REST. COMPLIANT WITH BiPAP. HEART RATE SINUS RHYTHM.
[2020-02-06 06:38] LABS: CALCIUM 8.5 mg/dL (8.4-10.2); CREATININE, serum 0.79 (0.66-1.25); POTASSIUM 3.7 mmol/L (3.4-5.0)
[2020-02-06 06:59] LABS: HEMOGLOBIN 11.8 g/dl (13.5-18.0); MEAN CELL VOLUME 100 fl (80.0-100.0); MEAN CORPUSCULAR HEMOGLOBIN 33 pg (27.0-31.0); MEAN CORPUSCULAR HGB CONC 33 g/dl (33.0-37.0); MEAN PLATELET VOLUME 10.5 fl (7.4-10.4); PLATELET COUNT 106 K/mm3 (130-400); RED BLOOD COUNT 3.62 M/mm3 (4.20-5.60); REDCELL DISTRIBUTION WIDTH-CV 15.7 % (11.5-14.5)
[2020-02-06 07:05] LABS: HEMATOCRIT 36.1 % (42.0-52.0)
[2020-02-06 08:15] VITALS: BP 133/72; PULSE 80; TEMP 97.3
[2020-02-06 09:57] LABS: BAND 22 % (0-10); METAMYELOCYTE 5 % (0-0); NEUTROPHILS 56 % (42.0-75.2); PLATELET ESTIMATE NORMAL (NORMAL)
[2020-02-06 09:59] LABS: LYMPHOCYTE 11 % (20.0-51.0)
[2020-02-06 12:26] VITALS: BP 119/73; PULSE 91; TEMP 97.7
[2020-02-06 15:27] VITALS: BP 139/60; PULSE 95; TEMP 97.5
--- NOTE | 2020-02-06 18:24 | NUR ---
PT HAS SAT UP IN RECLINER THIS SHIFT. NO C/O DYSPNIC THIS SHIFT. REMAINED ON ROOM AIR. PLANNING FOR A THROCENTSIS IN THE AM, PT CONSENT HAS BEEN SIGNED. NO C/O PAIN.
--- NOTE | 2020-02-06 20:30 | NUR ---
Assessment complete. Up in chair. Conversant. Denies needs at this time.
[2020-02-06 21:25] VITALS: BP 143/76; PULSE 90; TEMP 97.7
[2020-02-06 23:20] VITALS: BP 140/96; PULSE 87; TEMP 98.1
--- NOTE | 2020-02-07 00:57 | NUR ---
RN CALLED PT IS UNABLE TO SLEEP. PT IS ON ROOM AIR RESTING IN BED WITH BIPAP OFF AND DANIEL WELL. WILL CONTINUE TO MONITOR AND ASSESS PT.
[2020-02-07 04:46] VITALS: BP 109/61; PULSE 96; TEMP 98.3
[2020-02-07 06:34] LABS: INR 1.4 (0.8-3.0); PROTHROMBIN TIME 16.4 SECONDS (9.7-12.8)
[2020-02-07 06:44] LABS: CALCIUM 8.7 mg/dL (8.4-10.2); CREATININE, serum 0.96 (0.66-1.25); POTASSIUM 3.4 mmol/L (3.4-5.0)
--- NOTE | 2020-02-07 07:26 | NUR ---
PATIENT WORE BIPAP FOR 2 HOURS LAST NIGHT.
[2020-02-07 07:43] LABS: HEMOGLOBIN 11.9 g/dl (13.5-18.0); MEAN CELL VOLUME 99 fl (80.0-100.0); MEAN CORPUSCULAR HEMOGLOBIN 32 pg (27.0-31.0); MEAN CORPUSCULAR HGB CONC 33 g/dl (33.0-37.0); MEAN PLATELET VOLUME 10.5 fl (7.4-10.4); PLATELET COUNT 155 K/mm3 (130-400); RED BLOOD COUNT 3.71 M/mm3 (4.20-5.60); REDCELL DISTRIBUTION WIDTH-CV 15.5 % (11.5-14.5)
[2020-02-07 07:56] LABS: HEMATOCRIT 36.6 % (42.0-52.0)
[2020-02-07 08:01] LABS: BAND 9 % (0-10); EOSINOPHIL 1 % (0-4); LYMPHOCYTE 15 % (20.0-51.0); METAMYELOCYTE 9 % (0-0); MYELOCYTE 1 % (0-0); NEUTROPHILS 60 % (42.0-75.2); PLATELET ESTIMATE NORMAL (NORMAL)
[2020-02-07 08:09] VITALS: BP 139/76; PULSE 87; TEMP 97.2
--- NOTE | 2020-02-07 11:19 | NUR ---
Liana, IPR Director, reports that they are able to accept the patient. The patient is to discharge today, 02/06, to [facility]. IPR Director updated the patient's daughter, Nuris. No additional needs at this time.
[2020-02-07] MEDS ORDERED: PREDNISONE20 MG PO (12:23)
[2020-02-07] MEDS ORDERED: TUMS ULTRA ST1000 MG PO (12:23)
[2020-02-07] MEDS ORDERED: DEEP SEA 45 ML45 ML NS (12:24)
[2020-02-07] MEDS ORDERED: TYLENOL 325MG325 MG PO (12:24)
[2020-02-07] MEDS ORDERED: LASIX 20MG TABL20 MG PO (12:24)
[2020-02-07] MEDS ORDERED: ARTIFICIAL TEAR15 M7 OP (12:24)
[2020-02-07] MEDS ORDERED: LIPITOR 40MG TA40 MG PO (12:25)
[2020-02-07] MEDS ORDERED: LOVENOX 4040 MG/0.4 SQ (12:25)
[2020-02-07 12:40] VITALS: BP 144/73; PULSE 93; TEMP 97.2
[2020-02-07] MEDS ORDERED: IPRATROPIUM BROM3 M1 IH ×2 (13:13→13:14)
[2020-02-07] MEDS ORDERED: AMOXICILLIN 8751 TAB PO (13:18)
[2020-02-07 15:43] VITALS: BP 159/85; PULSE 90; TEMP 97.8
--- NOTE | 2020-02-07 17:10 | NUR ---
PATIENT IS ALERT AND ORIENTED. DENIES ANY PAIN. PATIENT ON 2L O2 AT 96% OXYGEN SATURATION. LUNG ULTRASOUND WAS DONE BY Dr Quintanilla. Mild fluid was detected. Dr said there will be no need for thoracentesis. patient was Central line was discntinued. Dressing on right side neck. patient denies any sensation to his left feet. patient [facility]
== END 2020-02-07 17:10 | DRG 871 ==
LOC: COL.ER 16:58 → ICU 19:46 → MEDICAL 02-03 20:20
PROVIDERS: Family Medicine; Internal Medicine Pulmonary Disease; Nurse Practitioner Family; Physician Assistant; ADMIT Internal Medicine
PROC: 05HM33Z Insertion of Infusion Device into Right Internal Jugular Vein, Percutaneous Approach (ICD-10-PCS; principal; 2020-01-31)
PROC: 0W993ZZ Drainage of Right Pleural Cavity, Percutaneous Approach (ICD-10-PCS; 2020-02-07)
DX: A40.3 Sepsis due to Streptococcus pneumoniae (principal); J96.01 Acute respiratory failure with hypoxia; R65.21 Severe sepsis with septic shock; J13 Pneumonia due to Streptococcus pneumoniae; R65.20 Severe sepsis without septic shock; E87.2 Acidosis; J44.0 Chronic obstructive pulmonary disease with (acute) lower respiratory infection; N17.9 Acute kidney failure, unspecified; C92.00 Acute myeloblastic leukemia, not having achieved remission; D61.818 Other pancytopenia; R19.7 Diarrhea, unspecified; R04.0 Epistaxis; T78.8XXA Other adverse effects, not elsewhere classified, initial encounter; J90 Pleural effusion, not elsewhere classified; D69.6 Thrombocytopenia, unspecified; Z66 Do not resuscitate; B34.1 Enterovirus infection, unspecified; Z86.73 Personal history of transient ischemic attack (TIA), and cerebral infarction without residual deficits; Z89.511 Acquired absence of right leg below knee; Z86.718 Personal history of other venous thrombosis and embolism; Z86.711 Personal history of pulmonary embolism; Z79.82 Long term (current) use of aspirin; Z87.891 Personal history of nicotine dependence
CPT/HCPCS: 99232-AI; 99233-AI; 99239; A4216; A9284; J0456; J0692; J0696; J1644; J1650; J1720; J1940; J3370; J7030; J7040; J7050; J7120; J7512; Q9967

== ENCOUNTER 2020-03-04 20:30 | Inpatient (IN) | payer MEDICARE, OTHER ==
[~2020-03-04] VITALS: Ht 177.8 cm; Wt 88.9 kg
[~2020-03-04 20:30] MED LIST changes: +AMOXICILLIN 8751 TAB PO; +ARTIFICIAL TEAR15 M7 OP; +DEEP SEA 45 ML45 ML NS; +IPRATROPIUM BROM3 M1 IH; +LASIX 20MG TABL20 MG PO; +LIPITOR 40MG TA40 MG PO; +LOVENOX 4040 MG/0.4 SQ; +PREDNISONE20 MG PO; +TUMS ULTRA ST1000 MG PO; +TYLENOL 325MG325 MG PO
[2020-03-04] MEDS ORDERED: METHOTREXA2.5 MG/TAB PO (21:08)
[2020-03-04 21:11] LABS: BASO % 0.5 % (0.0-2.0); EOS # 0.1 (0.0-0.7); GRAN # 4.6 (1.4-6.5); GRAN % 77.3 % (42.2-75.2); HEMATOCRIT 36.8 % (42.0-52.0); HEMOGLOBIN 12.1 g/dl (13.5-18.0); LYMPH # 0.8 (1.2-3.4); LYMPH % 13.6 % (20.0-51.0); MEAN CELL VOLUME 93 fl (80.0-100.0); MEAN CORPUSCULAR HEMOGLOBIN 31 pg (27.0-31.0); MEAN CORPUSCULAR HGB CONC 33 g/dl (33.0-37.0); MEAN PLATELET VOLUME 8.8 fl (7.4-10.4); MONO # 0.4 (0.1-0.6); MONO % 7.1 % (1.7-9.3); PLATELET COUNT 149 K/mm3 (130-400); RED BLOOD COUNT 3.94 M/mm3 (4.20-5.60); REDCELL DISTRIBUTION WIDTH-CV 15.7 % (11.5-14.5)
[2020-03-04 21:17] LABS: INR 1.3 (0.8-3.0); PROTHROMBIN TIME 15.7 SECONDS (9.7-12.8)
[2020-03-04 21:26] LABS: ALBUMIN 3.7 gm/dL (3.5-5.0); BILIRUBIN,TOTAL 1.5 mg/dL (0.0-1.0); CALCIUM 8.6 mg/dL (8.4-10.2); CREATININE, serum 1.03 (0.66-1.25); POTASSIUM 3.7 mmol/L (3.4-5.0); TOTAL PROTEIN 7.2 gm/dL (6.4-8.2)
[2020-03-04 21:53] LABS: COLLECTION METHOD CLEAN CATCH
[2020-03-04 21:59] LABS: PH 6 (5-8); SQUAMOUS EPITHELIAL None Seen /hpf; URINE APPEARANCE Clear; URINE BACTERIA None Seen /hpf; URINE BILIRUBIN Negative (NEGATIVE); URINE BLOOD Negative (NEGATIVE); URINE COLOR Straw; URINE GLUCOSE Negative (NEGATIVE); URINE KETONE Negative (NEGATIVE); URINE LEUKOCYTE ESTERASE Negative (NEGATIVE); URINE NITRATE Negative (NEGATIVE); URINE PROTEIN(semi-quant) Negative (NEGATIVE); URINE RBC 0-2 /hpf; URINE UROBILINOGEN Negative (NEGATIVE)
[2020-03-04 22:52] LABS: LACTATE DEHYDROGENASE 398 U/L (313-618)
[2020-03-04 23:04] LABS: C-REACTIVE PROTEIN 12.9 mg/dL (0.0-0.9); TROPONIN-I < 0.012 ng/mL (0.000-0.035)
--- NOTE | 2020-03-04 23:20 | NUR ---
Received report from Romi at [facility]. [facility] released to start in route with pt on Bipap.
--- NOTE | 2020-03-04 23:40 | NUR ---
Pt report received from Guerline WORTHINGTON in ED.
[2020-03-05] VITALS (1337 sets, daily range): BP systolic 121–157; BP diastolic 62–76; PULSE 76–97; TEMP 97.8–99.6; O2SAT 81–100
--- NOTE | 2020-03-05 00:05 | NUR ---
Pt arrived via stretcher from ED with personal belongings. Vital signs obtained at this time as well as assessment completed.
--- NOTE | 2020-03-05 00:05 | NUR ---
Darian from EMS called with pt update. ETA 7 minutes.
[2020-03-05] MEDS ORDERED: RT ADVAIR 228 DISKUS IH (00:38)
[2020-03-05 00:43] LABS: ARTERIAL BLD GAS O2 SATURATION 94.8 % (92-100); ARTERIAL BLD GAS TCO2 CT 23.7; ARTERIAL BLOOD GAS BASE EXCESS -0.6 (-2-2); ARTERIAL BLOOD GAS HCO3 22.7 meq/L (22-26); ARTERIAL BLOOD GAS PCO2 32.6 mmHg (35-45); ARTERIAL BLOOD GAS pH 7.46 (7.35-7.45)
[2020-03-05] MEDS ORDERED: PROTONIX20 MG PO (02:10)
--- NOTE | 2020-03-05 07:15 | NUR ---
Report provided to Gian Rubio RN. Pt resting with eyes closed in bed at this time.
[2020-03-05 07:22] LABS: BASO % 0.5 % (0.0-2.0); EOS # 0.1 (0.0-0.7); EOS % 1.8 % (0-4.0); GRAN # 2.7 (1.4-6.5); GRAN % 70.1 % (42.2-75.2); HEMOGLOBIN 10.8 g/dl (13.5-18.0); LYMPH # 0.7 (1.2-3.4); LYMPH % 19.4 % (20.0-51.0); MEAN CELL VOLUME 94 fl (80.0-100.0); MEAN CORPUSCULAR HEMOGLOBIN 31 pg (27.0-31.0); MEAN CORPUSCULAR HGB CONC 33 g/dl (33.0-37.0); MEAN PLATELET VOLUME 8.8 fl (7.4-10.4); MONO # 0.3 (0.1-0.6); MONO % 7.9 % (1.7-9.3); PLATELET COUNT 125 K/mm3 (130-400); RED BLOOD COUNT 3.51 M/mm3 (4.20-5.60); REDCELL DISTRIBUTION WIDTH-CV 15.6 % (11.5-14.5)
[2020-03-05 07:41] LABS: ALBUMIN 3.1 gm/dL (3.5-5.0); BILIRUBIN,TOTAL 1.1 mg/dL (0.0-1.0); CREATININE, serum 0.9 (0.66-1.25); POTASSIUM 3.6 mmol/L (3.4-5.0); TOTAL PROTEIN 6.1 gm/dL (6.4-8.2)
--- NOTE | 2020-03-05 20:55 | NUR ---
PT RESTING IN BED WATCHING TV, DENIES WAYLON PAIN OR DOA, ABLE TO SPEAKING IN COMPLETE SENTENCES W/O COUGHING OR BECOMING SOA. VSS, PT CONTINUES TO COUGH PERIODICALLY AND EXPECTORATE CLEAR, THICK SPUTUS. DRSG TO EFT FOOT COMPLETED. WILL CONTINUE TO MONITOR PT STATUS AND UPDATE PROVIDERS NEEDED
[2020-03-06] VITALS (937 sets, daily range): BP systolic 126–169; BP diastolic 70–92; PULSE 21–98; TEMP 97.7–99.4; O2SAT 81–100
[2020-03-06 04:46] LABS: BASO % 0.5 % (0.0-2.0); EOS # 0.1 (0.0-0.7); EOS % 2.1 % (0-4.0); GRAN # 2.8 (1.4-6.5); GRAN % 73.9 % (42.2-75.2); HEMOGLOBIN 10.5 g/dl (13.5-18.0); LYMPH # 0.8 (1.2-3.4); LYMPH % 20.6 % (20.0-51.0); MEAN CELL VOLUME 95 fl (80.0-100.0); MEAN CORPUSCULAR HEMOGLOBIN 30 pg (27.0-31.0); MEAN CORPUSCULAR HGB CONC 32 g/dl (33.0-37.0); MEAN PLATELET VOLUME 8.8 fl (7.4-10.4); MONO # 0.1 (0.1-0.6); MONO % 2.6 % (1.7-9.3); PLATELET COUNT 128 K/mm3 (130-400); RED BLOOD COUNT 3.45 M/mm3 (4.20-5.60); REDCELL DISTRIBUTION WIDTH-CV 15.4 % (11.5-14.5)
[2020-03-06 04:50] LABS: HEMATOCRIT 32.6 % (42.0-52.0)
[2020-03-06 04:57] LABS: ALBUMIN 3.1 gm/dL (3.5-5.0); CALCIUM 8.2 mg/dL (8.4-10.2); CREATININE, serum 1.03 (0.66-1.25); POTASSIUM 3.6 mmol/L (3.4-5.0); TOTAL PROTEIN 6.4 gm/dL (6.4-8.2)
--- NOTE | 2020-03-06 09:46 | NUR ---
SW contacted the patient's daughter, Nuris Tellez (ph#[phone]), to discuss discharge plan. The patient is a PUI for COVID and is in isolation. The patient lives in [place] with his daughter (Nuris), son-in-law, and grandson. Nuris reports that the patient is independent with ADLs and has a cane, walker, and wheelchair, available if needed. The patient's PCP is Dr. Fadumo Durand and he receives his medications at [facility] in [facility]. Nuris reports no difficulties obtaining his meds. The patient's advanced directives are in EMR. His DPOA-HC is Nuris. Nuris had no concerns with the patient returning back home upon discharge. SW to continue to follow.
--- NOTE | 2020-03-06 11:08 | NUR ---
CHEMOTHERAPY precautions should be in place for this pt who reportedly took his methotrexate at home on March 04. PPE should be worn for 3 days when handling urine and for 7 days for stool after administration. This information was phoned to ICU staff to be passed on. PT is also currently on COVID precautions as well--the only difference being double gloves should be worn during the above timeframe.
--- NOTE | 2020-03-06 18:14 | NUR ---
Per report from geophysical laboratory supervisor, Pt has been potentially in contact with a presumtive COVID-19 case. Family has been notified by House Sup. Will be transfering to [facility] at shift change.
--- NOTE | 2020-03-06 19:47 | NUR ---
Pt report rcvd from ELIN Al. Transferred to Medical room 315. Pt arrived by Wheelchair. Has no c/o pain or discomfort. Pt is on Methotrexate causing him to be on Chemo precautions at this time. Endorsed to Night time RN. Report given to ELIN Yen.
--- NOTE | 2020-03-06 19:50 | NUR ---
Pt up to chair. No distress noted. Report received from Cynthia WORTHINGTON. Respirations even and unlabored. Lungs clear, but diminished in bases. Spo2 95% on room air. Pt denies any shortness of breath. Pt reports "hacking cough". Not observed. Abdomen soft, nontender. BS+. Pt voiding clear, yellow urine in urinal. R BKA. L foot with unstageable pressure ulcer- dressed. R AC IV site with fluids infusing. Med Rec completed from transfer from ICU. Pt denies needs at this time.
[2020-03-07 03:23] VITALS: BP 143/70; PULSE 80; TEMP 98.4
--- NOTE | 2020-03-07 06:00 | NUR ---
Pt resting this morning without complaints. Pt had uneventful night. VSS. No needs noted.
[2020-03-07 06:33] LABS: BASO % 0.8 % (0.0-2.0); EOS # 0.1 (0.0-0.7); EOS % 3.4 % (0-4.0); GRAN # 2.7 (1.4-6.5); GRAN % 71.1 % (42.2-75.2); HEMOGLOBIN 10.9 g/dl (13.5-18.0); LYMPH # 0.8 (1.2-3.4); MEAN CELL VOLUME 95 fl (80.0-100.0); MEAN CORPUSCULAR HEMOGLOBIN 31 pg (27.0-31.0); MEAN CORPUSCULAR HGB CONC 32 g/dl (33.0-37.0); MEAN PLATELET VOLUME 8.8 fl (7.4-10.4); MONO # 0.1 (0.1-0.6); MONO % 2.4 % (1.7-9.3); PLATELET COUNT 157 K/mm3 (130-400); RED BLOOD COUNT 3.53 M/mm3 (4.20-5.60); REDCELL DISTRIBUTION WIDTH-CV 15.3 % (11.5-14.5)
[2020-03-07 06:44] LABS: ALBUMIN 3.2 gm/dL (3.5-5.0); BILIRUBIN,TOTAL 0.9 mg/dL (0.0-1.0); CALCIUM 8.4 mg/dL (8.4-10.2); CREATININE, serum 0.96 (0.66-1.25); POTASSIUM 3.8 mmol/L (3.4-5.0); TOTAL PROTEIN 6.4 gm/dL (6.4-8.2)
--- NOTE | 2020-03-07 07:00 | NUR ---
Report given to Charline WORTHINGTON.
[2020-03-07 07:06] LABS: HEMATOCRIT 33.6 % (42.0-52.0)
[2020-03-07 08:29] VITALS: BP 101/55; PULSE 94; TEMP 98
--- NOTE | 2020-03-07 09:09 | NUR ---
Patient was awake and alert in bed when I entered room to administer medication. He did inquire about dressing change to the left foot, did report that it is changed twice a day. Therapy worked with patient and reports that he did well ambulating in the cameron and feel that he would be fine to be independent in room, they also stated that he is able to put prosthetic independently without assistance. Respirations are even and nonlabored. He is denying pain. Provided with fresh ice water. Call light and personal items are within reach.
[2020-03-07] MEDS ORDERED: MAXIPIME2 GM IV ×2 (11:18→12:48)
--- NOTE | 2020-03-07 12:13 | NUR ---
First visit from the boat hoist operator. No needs right now.
[2020-03-07 12:54] VITALS: BP 130/65; PULSE 91; TEMP 98.3
--- NOTE | 2020-03-07 15:35 | NUR ---
Impregnator And Drier attended clinical rounds with the team. Patient to discharge home today. Patient will need four days of outpatient IV antibiotics. JUVE met with patient who is agreeable to appointments being set up at the [facility]. JUVE also spoke with patient about setting up Home Health services. Patient is agreeable to this and selected [facility] from the Medicare.gov list of agencies. JUVE contacted Yajaira at [facility] and faxed referral. [facility] is able to accept referral. JUVE spoke with patient's daughter, Nuris to provide update. Nuris advised outpatient appointments at [facility] would be best for patient as opposed to administering the IV antibiotics at home. Nuris states she is not willing to learn how to administer. Nuris states patient typically drives himself to medical appointments but that she can assist as needed. Nuris is in agreement about establishing services. JUVE contacted [facility] and faxed discharge orders and antibiotic prescription. Appointment times are 0700 and 1800. Appointment times provided to patient, Nuris and ELIN Olivier. Patient had midline placed this afternoon. JUVE faxed discharge orders to [facility]. JUVE met with patient and read IM form aloud. Patient verbalized understanding and provided verbal consent as signature. JUVE placed form in chart and provided copy to patient. No additional needs at this time.
[2020-03-07 16:30] VITALS: BP 137/79; PULSE 82; TEMP 98.2
--- NOTE | 2020-03-07 19:10 | NUR ---
Patients antibiotic complete, he has called his who is on her way. Getting ready for discharge.
--- NOTE | 2020-03-07 19:15 | NUR ---
Patient escorted out of building at this time by CA Gutierrez. [place]ge paperwork reviewed and documents signed. Patient is aware of his appointment in the express unit for tomorrow.
== END 2020-03-07 19:15 | disposition home or self-care (01) | DRG 871 ==
LOC: COL.ER 20:30 → ICU 21:59 → COL.ER 21:59 → ICU 21:59 → MEDICAL 03-06 18:46
PROVIDERS: Emergency Medicine; Nurse Practitioner Family; ADMIT Internal Medicine
PROC: 02HV33Z Insertion of Infusion Device into Superior Vena Cava, Percutaneous Approach (ICD-10-PCS; principal; 2020-03-07)
DX: A41.9 Sepsis, unspecified organism (principal); J96.01 Acute respiratory failure with hypoxia; J18.9 Pneumonia, unspecified organism; L03.116 Cellulitis of left lower limb; C92.00 Acute myeloblastic leukemia, not having achieved remission; M06.9 Rheumatoid arthritis, unspecified; J44.9 Chronic obstructive pulmonary disease, unspecified; R65.20 Severe sepsis without septic shock; L97.529 Non-pressure chronic ulcer of other part of left foot with unspecified severity; R53.81 Other malaise; B96.5 Pseudomonas (aeruginosa) (mallei) (pseudomallei) as the cause of diseases classified elsewhere; Z03.818 Encounter for observation for suspected exposure to other biological agents ruled out; Z89.511 Acquired absence of right leg below knee; Z86.718 Personal history of other venous thrombosis and embolism; Z86.711 Personal history of pulmonary embolism; Z79.82 Long term (current) use of aspirin; Z87.891 Personal history of nicotine dependence
CPT/HCPCS: 99223-AI; 99232-AI; 99233-AI; 99239; C1751; C1892; C9113; J0692; J1650; J2543; J3370; J7030; J7050

== ENCOUNTER → 2020-03-09 | Outpatient (CLI) | payer MEDICARE, OTHER ==
[~2020-03-09] MED LIST changes: +MAXIPIME2 GM IV; +PROTONIX20 MG PO
== END ==
LOC: ZCOL.LAB 15:27
DX: L03.90 Cellulitis, unspecified (principal); A41.9 Sepsis, unspecified organism; A49.8 Other bacterial infections of unspecified site

== ENCOUNTER 2020-03-16 07:00 | Outpatient (RCR) | payer MEDICARE, OTHER ==
[2020-03-08 07:55] VITALS: BP 111/67; PULSE 73; TEMP 97.5
[2020-03-08 18:06] VITALS: BP 130/78; PULSE 87; TEMP 97.2
[2020-03-09 07:21] VITALS: BP 142/87; PULSE 80; TEMP 97.3
[2020-03-09 17:31] VITALS: BP 109/71; PULSE 94; TEMP 98.3
[2020-03-10 07:22] VITALS: BP 150/80; PULSE 78; TEMP 97.6
[2020-03-10 17:40] VITALS: BP 155/77; PULSE 95; TEMP 97.2
[2020-03-11 07:59] VITALS: BP 168/94; PULSE 83; TEMP 97.2
[2020-03-11 17:30] VITALS: BP 142/79; PULSE 86; TEMP 97.2
[2020-03-12 09:18] VITALS: BP 128/82; PULSE 88; TEMP 97.9
[2020-03-12 17:36] VITALS: BP 143/79; PULSE 88; TEMP 97.6
[2020-03-13 07:33] VITALS: BP 147/85; PULSE 85; TEMP 98.4
[2020-03-13 07:42] LABS: BASO % 0.7 % (0.0-2.0); EOS # 0.1 (0.0-0.7); EOS % 3.3 % (0-4.0); GRAN % 67.5 % (42.2-75.2); HEMOGLOBIN 11.3 g/dl (13.5-18.0); LYMPH # 0.7 (1.2-3.4); LYMPH % 23.2 % (20.0-51.0); MEAN CELL VOLUME 95 fl (80.0-100.0); MEAN CORPUSCULAR HEMOGLOBIN 30 pg (27.0-31.0); MEAN CORPUSCULAR HGB CONC 32 g/dl (33.0-37.0); MEAN PLATELET VOLUME 8.6 fl (7.4-10.4); MONO # 0.1 (0.1-0.6); MONO % 4.6 % (1.7-9.3); PLATELET COUNT 150 K/mm3 (130-400); RED BLOOD COUNT 3.75 M/mm3 (4.20-5.60)
[2020-03-13 07:48] LABS: HEMATOCRIT 35.7 % (42.0-52.0)
[2020-03-13 07:58] LABS: ALBUMIN 3.5 gm/dL (3.5-5.0); BILIRUBIN,TOTAL 1.1 mg/dL (0.0-1.0); C-REACTIVE PROTEIN 1.6 mg/dL (0.0-0.9); CALCIUM 8.8 mg/dL (8.4-10.2); CREATININE, serum 1.07 (0.66-1.25); POTASSIUM 3.8 mmol/L (3.4-5.0); TOTAL PROTEIN 6.8 gm/dL (6.4-8.2)
[2020-03-13 08:10] LABS: ERYTHROCYTE SEDIMENTATION RATE 24 mm/hr (0-30)
[2020-03-13 17:39] VITALS: BP 158/77; PULSE 90; TEMP 97.9
[2020-03-14 07:07] VITALS: BP 151/90; PULSE 74; TEMP 97.5
[2020-03-14 17:26] VITALS: BP 145/84; PULSE 56; TEMP 98.2
[2020-03-15 07:07] VITALS: BP 161/100; PULSE 82; TEMP 98.1
[2020-03-15 17:47] VITALS: BP 156/80; PULSE 78; TEMP 97.8
[~2020-03-16] VITALS: Ht 177.8 cm; Wt 92.6 kg
[2020-03-16 06:59] VITALS: BP 142/74; PULSE 87; TEMP 97.9
[2020-03-16 17:54] VITALS: BP 142/86; PULSE 78; TEMP 98.2
== END 2020-03-16 18:00 | disposition home or self-care (01) ==
LOC: EUO 07:00
PROVIDERS: Nurse Practitioner
DX: L03.116 Cellulitis of left lower limb (principal); B96.5 Pseudomonas (aeruginosa) (mallei) (pseudomallei) as the cause of diseases classified elsewhere; L03.90 Cellulitis, unspecified; A49.8 Other bacterial infections of unspecified site; A41.9 Sepsis, unspecified organism
CPT/HCPCS: J0692

== ENCOUNTER 2020-04-28 08:00 | Inpatient (IN) | payer MEDICARE, OTHER ==
[~2020-04-28] VITALS: Ht 177.8 cm; Wt 89.1 kg
[2020-04-28 13:36] VITALS: BP 106/58; PULSE 88; TEMP 98.2
[2020-04-28] MEDS ORDERED: MOTRIN 200200 MG/TAB PO (14:13)
[2020-04-28] MEDS ORDERED: NORCO 325 MG-51 TAB PO (14:15)
--- NOTE | 2020-04-28 14:30 | NUR ---
Patient to room 346 by wheelchair from admissions. Patient A&Ox3, reporting pain/"fire feeling" in left foot 11/10 scale. VSS.No pain medication given. Nurse oriented patient to room, call light and bed. Patient verbalized an understanding. Left foot in boot, kerlix applied. Oder coming from foot. Prosthesis to right lower leg. Fall precuations in place. No further needs expressed from patient. Call light within reach. Bed alarm on. Instructed patient to call for assistance when needed
[2020-04-28 14:31] LABS: BASO % 0.3 % (0.0-2.0); EOS # 0.1 (0.0-0.7); EOS % 1.8 % (0-4.0); GRAN # 4.8 (1.4-6.5); GRAN % 78.9 % (42.2-75.2); LYMPH # 0.7 (1.2-3.4); LYMPH % 11.6 % (20.0-51.0); MEAN CELL VOLUME 91 fl (80.0-100.0); MEAN CORPUSCULAR HEMOGLOBIN 28 pg (27.0-31.0); MEAN CORPUSCULAR HGB CONC 31 g/dl (33.0-37.0); MEAN PLATELET VOLUME 9.6 fl (7.4-10.4); MONO # 0.4 (0.1-0.6); MONO % 6.7 % (1.7-9.3); PLATELET COUNT 171 K/mm3 (130-400); RED BLOOD COUNT 3.55 M/mm3 (4.20-5.60); REDCELL DISTRIBUTION WIDTH-CV 16.6 % (11.5-14.5)
[2020-04-28 14:36] LABS: HEMATOCRIT 32.2 % (42.0-52.0)
[2020-04-28 14:52] LABS: ALANINE AMINOTRANSFERASE 39 U/L (4-49); ALBUMIN 3.1 gm/dL (3.5-5.0); ALKALINE PHOSPHATASE 76 U/L (50-136); ANION GAP 9 mmol/L (7-16); AST,SGOT 33 U/L (15-37); BILIRUBIN,TOTAL 0.4 mg/dL (0.0-1.0); BLOOD UREA NITROGEN 16 mg/dL (9-20); CALCIUM 8.5 mg/dL (8.4-10.2); CARBON DIOXIDE 23 mmol/L (22-30); CHLORIDE 105 mmol/L (98-107); CREATININE, serum 1.36 (0.66-1.25); GLUCOSE 109 mg/dL (74-106); MAGNESIUM 2.2 mg/dL (1.6-2.3); POTASSIUM 4.2 mmol/L (3.4-5.0); SODIUM 137 mmol/L (137-145); TOTAL PROTEIN 6.5 gm/dL (6.4-8.2)
[2020-04-28 14:53] LABS: INR 1.4 (0.8-3.0); PROTHROMBIN TIME 15.9 SECONDS (9.7-12.8)
[2020-04-28 15:08] LABS: TROPONIN-I < 0.012 ng/mL (0.000-0.035)
[2020-04-28 16:17] LABS: COLLECTION METHOD CLEAN CATCH
[2020-04-28 16:31] LABS: MUCOUS Present /lpf; PH 5 (5-8); SQUAMOUS EPITHELIAL 0-2 /hpf; URINE APPEARANCE Hazy; URINE BACTERIA None Seen /hpf; URINE BILIRUBIN Negative (NEGATIVE); URINE BLOOD Negative (NEGATIVE); URINE COLOR Yellow; URINE GLUCOSE Negative (NEGATIVE); URINE KETONE Negative (NEGATIVE); URINE LEUKOCYTE ESTERASE Negative (NEGATIVE); URINE NITRATE Negative (NEGATIVE); URINE PROTEIN(semi-quant) 1+ (NEGATIVE); URINE RBC 0-2 /hpf; URINE UROBILINOGEN Negative (NEGATIVE)
[2020-04-28] MEDS ORDERED: BACTRIM 400 MG-1 TAB PO (17:12)
[2020-04-28 17:21] VITALS: BP 110/72; PULSE 74; TEMP 98.2
--- NOTE | 2020-04-28 17:37 | NUR ---
Patient resting in bed. A&Ox3, intermittent sleeping, easily aroused. Reporting pain 8/10 left foot. Pain medication given when requested. Left foot wrapped kerlix. Boot left off. VSS. IV CDI. No further needs expressed from patient. Patient NPO after midnight for procedure. Call light within reach. Bed alarm on
[2020-04-28 19:52] VITALS: BP 125/64; PULSE 84; TEMP 98.4
[2020-04-28 23:29] VITALS: BP 116/51; PULSE 95; TEMP 98.4
[2020-04-29] VITALS (11 sets, daily range): BP systolic 101–135; BP diastolic 59–81; PULSE 73–93; TEMP 97.3–98.1
--- NOTE | 2020-04-29 05:01 | NUR ---
Patient has rested well throughout the night. Dressing to left foot has small amount of drainage present. PRN morphine given for pain when requested. Previous BKA noted to right leg. Patient has been NPO since midnight for procedure this morning. Wound covered with gauze and tape. Patient utilizes urinal for voiding. Urine yellow and clear. Left leg noted to be swollen and red. Will continue to monitor patient.
--- NOTE | 2020-04-29 07:07 | NUR ---
Lying in bed with eyes open. Rates pain 7/10 in left foot, describes as a burning sensation. Dressing to left foot with small amount of purulent discharge near left great toe, odorous. Patient is ready for his surgery this morning. Denies further needs at this time.
--- NOTE | 2020-04-29 07:20 | NUR ---
Patient to surgery via bed.
--- NOTE | 2020-04-29 09:15 | NUR ---
Patient back to room from surgery. Patient will wake up and is alert and oriented x4 but then goes back to sleep. Dressing to left foot CDI.
[2020-04-29 11:39] LABS: BASO % 0.2 % (0.0-2.0); EOS % 0.7 % (0-4.0); GRAN # 3.9 (1.4-6.5); GRAN % 89.5 % (42.2-75.2); HEMOGLOBIN 10.4 g/dl (13.5-18.0); LYMPH # 0.3 (1.2-3.4); LYMPH % 6.9 % (20.0-51.0); MEAN CELL VOLUME 91 fl (80.0-100.0); MEAN CORPUSCULAR HEMOGLOBIN 28 pg (27.0-31.0); MEAN CORPUSCULAR HGB CONC 31 g/dl (33.0-37.0); MEAN PLATELET VOLUME 9.1 fl (7.4-10.4); MONO # 0.1 (0.1-0.6); MONO % 1.8 % (1.7-9.3); PLATELET COUNT 212 K/mm3 (130-400); RED BLOOD COUNT 3.74 M/mm3 (4.20-5.60); REDCELL DISTRIBUTION WIDTH-CV 16.7 % (11.5-14.5)
[2020-04-29 11:41] LABS: HEMATOCRIT 34.1 % (42.0-52.0)
[2020-04-29 11:46] LABS: CALCIUM 8.7 mg/dL (8.4-10.2); CREATININE, serum 1.11 (0.66-1.25); POTASSIUM 4.6 mmol/L (3.4-5.0)
--- NOTE | 2020-04-29 13:52 | NUR ---
visited at length with patient. That was all patient needed for now.
--- NOTE | 2020-04-29 15:49 | NUR ---
Patient sitting up in bed with eyes open. Denies pain at this time. Dressing to left lower extremitiy CDI. Patient denies any needs at this time.
--- NOTE | 2020-04-29 18:10 | NUR ---
Sitting on edge of bed finishing dinner tray. Denies pain. Voices no further needs at this time.
--- NOTE | 2020-04-29 19:50 | NUR ---
Received report from ELIN Phillips. Pt is currently sitting up in bed watching tv. Pt stated that he has no pain at this time. Pt has his call light within reach.
[2020-04-30] VITALS (7 sets, daily range): BP systolic 127–143; BP diastolic 61–76; PULSE 72–93; TEMP 97.5–97.8
--- NOTE | 2020-04-30 01:00 | NUR ---
Pt did wake up and asked for his door to be closed. He seemed a little confused he asked me if there was someone in the hospital that didn't belong because he heard the police. I informed the nurse that we were in helping a paitent and it may have been loud and woke him. Pt is lying in bed now and has his call light within reach.
--- NOTE | 2020-04-30 04:00 | NUR ---
Pt currently lying in bed sleeping. Pt has his call light within reach.
--- NOTE | 2020-04-30 06:26 | NUR ---
Pt was sleeping in bed. Pt was given his morning medications at this time. Pt urinal was also emptied. He has his call light within reach.
--- NOTE | 2020-04-30 07:10 | NUR ---
Reported off to ELIN Phillips. Pt has his call light within reach and is awake in bed.
--- NOTE | 2020-04-30 07:17 | NUR ---
Lying in bed with eyes open. Patient denies pain. Dressing to left foot CDI. Patient says that he did not get a lot of sleep last night. Denies any needs at this time.
--- NOTE | 2020-04-30 09:24 | NUR ---
Patient moved from room 346 to 34 via wheel chair. Little difficulty with transfers. CA Wyatt, assists with sponge bath. Patient able to perform oral hygiene independently when given supplies. Denies further needs.
[2020-04-30 09:56] LABS: HEMOGLOBIN 10.9 g/dl (13.5-18.0); MEAN CELL VOLUME 92 fl (80.0-100.0); MEAN CORPUSCULAR HEMOGLOBIN 29 pg (27.0-31.0); MEAN CORPUSCULAR HGB CONC 31 g/dl (33.0-37.0); MEAN PLATELET VOLUME 9.1 fl (7.4-10.4); PLATELET COUNT 268 K/mm3 (130-400); REDCELL DISTRIBUTION WIDTH-CV 16.3 % (11.5-14.5)
[2020-04-30 09:57] LABS: HEMATOCRIT 34.8 % (42.0-52.0)
[2020-04-30 10:08] LABS: CREATININE, serum 0.92 (0.66-1.25); POTASSIUM 4.4 mmol/L (3.4-5.0)
[2020-04-30 11:09] LABS: ANISOCYTOSIS 2+; BAND 2 % (0-10); LYMPHOCYTE 5 % (20.0-51.0); NEUTROPHILS 92 % (42.0-75.2); PLATELET ESTIMATE NORMAL (NORMAL)
--- NOTE | 2020-04-30 12:14 | NUR ---
Sitting on edge of bed. Rates pain 2/10, would like pain medication. [place] administered as prescribed. Encouraged patient to elevate foot at this time. Patient denies further needs.
--- NOTE | 2020-04-30 18:06 | NUR ---
Sitting up in bed watching TV and talking on cell phone. Denies pain or needs at this time. Dressing to left foot CDI. Lower left leg elevated on pillow.
--- NOTE | 2020-04-30 20:00 | NUR ---
Report received, assumed care for shift supervisor rn. Assessment complete. VS stable. A&Ox3. Left lower extremity dressing anamika/bulky white-CDI. Denies pain/nausea/shortness of breath. INT to left wrist flushes without difficulty. SCDs bilat. Call light in reach will monitor.
[2020-05-01] VITALS (7 sets, daily range): BP systolic 121–139; BP diastolic 58–76; PULSE 67–86; TEMP 97.2–97.9
--- NOTE | 2020-05-01 08:00 | NUR ---
Patient in bed resting. Alert and oriented x 3. Assessment complete. Patient denies pain at this time. Compa wrap to LLE is CDI. Right BKA noted. INT to left wrist without complications. Denies further needs at this time.
--- NOTE | 2020-05-01 09:36 | NUR ---
JUVE received a phone call from the patient's daughter, Nuris Tellez (ph#[phone]), for an update on plan. Nuris reports that her and her family will be leaving May 11 to [place] and agree that the patient will need post-acute rehab upon discharge. She states that the patient would prefer [facility] or [facility]. JUVE then met with the patient to discuss discharge plan. The patient lives in [place] with his daughter (Nuris), son-in-law (Miller), and grandson. He reports independence with ADLs and has a cane, walker, and wheelchair. The patient's PCP is Dr. Fadumo Durand and he receives his medications at [facility] in [facility]. He reports no difficulties obtaining his meds. The patient's advanced directives are in EMR. Her DPOA-HC is his daughter, Nuris. JUVE then discussed PT's recommendation of post-acute rehab. The patient was agreeable to post-acute rehab and chose 1) [facility] 2) [facility] 3)[facility]. JUVE contacted and faxed a referral to both facilities. An IPR Consult had been ordered. JUVE also discussed applying for Medicaid. The patient was interested in this. JUVE consulted Financial Counselor, Symone. SW awaiting screens.
--- NOTE | 2020-05-01 11:00 | NUR ---
Hospitalist and team in to see patient.
--- NOTE | 2020-05-01 13:41 | NUR ---
Patient working with
--- NOTE | 2020-05-01 13:42 | NUR ---
Patient working with PT
--- NOTE | 2020-05-01 14:08 | NUR ---
Manav, at [facility], reports that they are able to accept the patient; but that they would need a break in stay letter signed by ortho. JUVE attempted to contact Dr. Rush's RN at [facility]. JUVE left a message with the salon receptionist. JUVE to update the patient and will continue to follow.
--- NOTE | 2020-05-01 15:28 | NUR ---
Patient sitting up in recliner. Denies pain or further needs at this time.
--- NOTE | 2020-05-01 18:33 | NUR ---
Patient has done well throughout the day. Minimal needs. Sitting up eating supper. Placed on Contact isolation. Patient continues to Deny pain throughout the day. Denies further needs at this time. Will report off to shift supervisor melting.
--- NOTE | 2020-05-01 20:00 | NUR ---
Report received, assumed care for paper bag machine operator. A&Ox3. Assessment complete. VS stable. Denies pain/nausea/shortness fo breath. INT to left wrist flushes without difficulty. Dressing to left foot-gauze/anamika-CDI. Denies questions/concerns. Call light in reach. Will monitor.
--- NOTE | 2020-05-02 04:21 | NUR ---
Rested well this shift. Denied pain/nausea/shortness of breath. MRSA screen collected for nares and sent to lab. Dressing to left lower extremity CDI-bulky gauze/anamika. Denies needs. Call light in reach. Will monitor.
[2020-05-02 04:51] VITALS: BP 146/68; PULSE 80; TEMP 97.6
[2020-05-02 07:19] VITALS: BP 137/95; PULSE 78; TEMP 97.7
--- NOTE | 2020-05-02 07:30 | NUR ---
Sitting up in bed eating breakfast. Denies pain. Dressing to left foot CDI. Patient says that they are going to get him into [facility] for rehab. Denies additional needs at this time.
[2020-05-02 11:23] VITALS: BP 149/75; PULSE 76; TEMP 97.7
[2020-05-02] MEDS ORDERED: ASPI325T6 PO (14:14)
[2020-05-02] MEDS ORDERED: NORCO 325 MG-51 TAB PO (14:15)
--- NOTE | 2020-05-02 14:54 | NUR ---
Dr. Rush filled out and signed the Break in Stay Letter. JUVE notified and faxed the letter to Manav at [facility]. The patient is to discharge today, 05/02, to [facility] for a skilled stay. Transportation was scheduled at 1500, via [facility]. JUVE informed the patient, his RN, and the patient's daughter (Nuris) via phone. They were all agreeable to the time. JUVE also presented and read the IM form outloud to the patient. The patient verbalized understanding and gave JUVE approval to sign the form on his behalf. JUVE provided him with a copy. Symone, Financial Counselor, also completed a Medicaid shakira with the patient. JUVE presented the forms to the patient to sign. The patient signed and JUVE provided the signed forms back to Symone. JUVE notified Manav at [facility] of the completed shakira. JUVE to fax the confirmation letter to Manav. No additional needs at this time.
[2020-05-02 15:00] VITALS: BP 149/75; PULSE 76; TEMP 97.7
--- NOTE | 2020-05-02 15:09 | NUR ---
Message left at [facility] for the nurse to contact this nurse.
--- NOTE | 2020-05-02 16:00 | NUR ---
[facility] here to filler picker patient. Patient assisted into wheelchair. Patient has all personal belongings. Discharge packet provided to [facility] staff.
== END 2020-05-02 16:00 | DRG 475 ==
LOC: SURG 08:00
PROVIDERS: ADMIT Hospitalist
PROC: 0Y6N0Z9 Detachment at Left Foot, Partial 1st Ray, Open Approach (ICD-10-PCS; principal; 2020-04-28)
DX: M86.8X7 Other osteomyelitis, ankle and foot (principal); C92.00 Acute myeloblastic leukemia, not having achieved remission; N17.9 Acute kidney failure, unspecified; M06.9 Rheumatoid arthritis, unspecified; I73.9 Peripheral vascular disease, unspecified; R53.81 Other malaise; J44.9 Chronic obstructive pulmonary disease, unspecified; Z86.718 Personal history of other venous thrombosis and embolism; Z86.711 Personal history of pulmonary embolism; Z79.82 Long term (current) use of aspirin
CPT/HCPCS: 99222-AI; 99231-AI; 99232-AI; 99239; J1100; J2250; J2270; J2405; J2543; J2704; J3010; J7030; J8610

== ENCOUNTER → 2020-05-24 | Outpatient (CLI) | payer MEDICARE, OTHER ==
[~2020-05-24] MED LIST changes: +ASPI325T6 PO; +BACTRIM 400 MG-1 TAB PO; +MOTRIN 200200 MG/TAB PO; +NORCO 325 MG-51 TAB PO
== END ==
LOC: ZCOL.LAB 14:01
DX: T87.81 Dehiscence of amputation stump (principal); Z89.432 Acquired absence of left foot

== ENCOUNTER 2020-06-01 15:34 | Inpatient (IN) | payer MEDICARE, OTHER ==
[~2020-06-01] VITALS: Ht 177.8 cm; Wt 92.7 kg
[2020-06-06] VITALS (10 sets, daily range): BP systolic 100–139; BP diastolic 34–98; PULSE 85–104; TEMP 97.4–98.6
[2020-06-06] MEDS ORDERED: ASPIRIN 32325 MG/TAB PO (11:10)
[2020-06-06] MEDS ORDERED: PLAVIX 75MG TAB75 MG PO (11:13)
[2020-06-06] MEDS ORDERED: LASIX 20MG TABL20 MG PO (11:14)
[2020-06-06] MEDS ORDERED: NORCO 325 MG-51 TAB PO (11:16)
[2020-06-06] MEDS ORDERED: JUVEN1 PDR PO (11:17)
--- NOTE | 2020-06-06 11:19 | NUR ---
The patient was brought back to [place] [facility] via wheelchair at this time. The patient transferred himself from the wheelchair to the cart in his room with the stand by assistance of one nurse. Consent signed. Vital signs obtained. Heart Reg. Lungs clear. Bowel sounds audible. Call light is within reach. The patient was given a urinal if he needs to void. Will continue to monitor the patient.
--- NOTE | 2020-06-06 16:40 | NUR ---
Patient to room from PACU via bed. Patient is alert sitting up in bed eating ice chips. Has some burning to left stump, no pain. Dressing CDI to left leg. Hemovac drain compressed, no drainage noted. Oriented to room. Denies additional needs.
--- NOTE | 2020-06-06 18:38 | NUR ---
Sitting up in bed eating dinner. Having some burning sensation in left BKA. Dressing CDI. Patient denies additional needs.
--- NOTE | 2020-06-06 21:00 | NUR ---
Resting in bed. Assessment complete. Lungs clear. Heart sounds normal. Bowels active x4. Pulses present. No edema noted. IV right hand without complications. Denies pain at this time. Left BKA dressing CDI with hemovac in place. Denies needs. Call light in reach.
[2020-06-07 00:02] VITALS: BP 110/58; PULSE 95; TEMP 97.8
--- NOTE | 2020-06-07 00:15 | NUR ---
Resting in bed. Denies needs. Call light in reach.
[2020-06-07 04:10] VITALS: BP 118/62; PULSE 84; TEMP 97.6
--- NOTE | 2020-06-07 06:22 | NUR ---
Patient had uneventful night. Minimal drainage in hemovac. Resting in bed this AM. Call light in reach.
[2020-06-07 07:04] LABS: HEMATOCRIT 37.1 % (42.0-52.0)
--- NOTE | 2020-06-07 07:05 | NUR ---
Report given to ELIN Davenport
--- NOTE | 2020-06-07 07:11 | NUR ---
Dr Rush here to see patient.
[2020-06-07 08:13] VITALS: BP 142/65; PULSE 65; TEMP 97.8
--- NOTE | 2020-06-07 09:32 | NUR ---
The patient is on contact isolation. JUVE contacted the patient's daughter/DPOA-HC, Nuris Tellez (ph#[phone]), to discuss discharge plan. The patient has been residing at [facility] for [facility]. His PCP is Dr. Fadumo Durand and his advanced directives are in EMR. Nuris reports that the plan is for the patient to return back to [facility] upon discharge. JUVE contacted and faxed updates to Manav at [facility]. Manav reports that they will require another COVID test. JUVE to notify the patient's RN and will continue to follow.
--- NOTE | 2020-06-07 10:30 | NUR ---
Patient alert and oriented, answers questions appropriately. See assessment. LBKA with dressing CDI, immobilizer in place. Hemovac drain in place to LBKA with scant amount of serosanguinous drainage noted. 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 No c/o at this time.
[2020-06-07 12:25] VITALS: BP 121/63; PULSE 61; TEMP 98.1
[2020-06-07 17:50] VITALS: BP 170/88; PULSE 86; TEMP 98
[2020-06-07 19:59] VITALS: BP 145/79; PULSE 97; TEMP 97.7
--- NOTE | 2020-06-07 20:12 | NUR ---
Pt complains of left leg pain, medicated with Oxycodone 10mg po now. Has left stump in brace. Has previous rt BKA. Is alert and oriented x4. Has SL to right hand without redness or swelling.
--- NOTE | 2020-06-07 21:29 | NUR ---
Still rating pain to left stump /10. Medicated with [place] 7.5mg 2 tabs at this time with HS meds.
[2020-06-08] VITALS (7 sets, daily range): BP systolic 114–158; BP diastolic 55–77; PULSE 67–90; TEMP 97.7–98.2
--- NOTE | 2020-06-08 01:54 | NUR ---
Medicated with [place] 7.5mg 2 tabs po for left stump pain 06/26.
--- NOTE | 2020-06-08 05:28 | NUR ---
Medicated with [place] 7.5mg 2 tabs po for left stump pain. Has stump elevated on pillows.
--- NOTE | 2020-06-08 08:00 | NUR ---
Patient resting in bed at this time. Patient's left residual limb is elevated on pillows and dressed. Compa wrap is CDI. Patient is alert and oriented, very plesent this morning. Patient declines pain medication at this time, but states he would like it in an hour or two and will let staff know when he is ready for it. Patient denies further needs at this time, call light within reach, bed alarm on.
--- NOTE | 2020-06-08 12:04 | NUR ---
The patient is to tentatively discharge back to [facility] tomorrow, 06/09. JUVE contacted and updated the patient's daughter, Nuris. Nuris was agreeable to the plan and reports that she is having surgery tomorrow, so she will be unreachable until late afternoon. She states that she is agreeable to any transport time tomorrow. SW also read the IM form outloud to Nuris. Nuris verbalized understanding and gave SW approval to sign the form on her behalf. JUVE contacted and faxed updates to [facility]. SW to continue to follow.
--- NOTE | 2020-06-08 18:36 | NUR ---
Patient resting in bed at this time. Patient has remained alert and oriented all day. Patient has voided in his urinal independently, urine remains clear and pale yellow. Patient is independently mobile in bed. Patient reports pain is controlled at this time, but would like to have pain medication at HS, will pass on to night nurse. Patient denies further needs at this time, call light within reach.
--- NOTE | 2020-06-08 21:00 | NUR ---
Patient alert and oriented in bed; requested pain medication for left lower extremity stump pain. PRN norco administered. Assisted with repositioning BKA. All questions and concerns addressed at this time. Will continue to monitor.
--- NOTE | 2020-06-08 21:10 | NUR ---
PT REFUSED TREATMENT STATING "MAKES ME FEEL WORSE BREATHING RAMÍREZ" ASSESSED PT AND PT IS IN NO DISTRESS WILL CONTINUE TO ASSESS AND MONITOR.
[2020-06-09 03:38] VITALS: BP 156/74; PULSE 72; TEMP 97.7
[2020-06-09] MEDS ORDERED: SENOKOT S 50 MG1 TAB PO (06:39)
[2020-06-09] MEDS ORDERED: NORCO 325 MG-7.1 TAB PO (06:39)
--- NOTE | 2020-06-09 08:00 | NUR ---
Patient in bed resting. Alert and oriented x 3. Assessment complete. LLE with acewrap is CDI. Immobilizer in place. Patient denies pain at this time. Denies further needs at this time.
[2020-06-09 08:18] VITALS: BP 128/67; PULSE 90; TEMP 97.7
--- NOTE | 2020-06-09 09:10 | NUR ---
Dressing change to LLE. Incision with edges well approximated, caitie intact. Redressed with gauze, ABD, kerlix and KIRTI wrap. Deneis further needs at this time.
--- NOTE | 2020-06-09 09:49 | NUR ---
The patient is to discharge today, 06/09, back to [facility] for a skilled stay. Transportation was scheduled at 1200, via [facility]. SW informed the patient's RN and the patient's son-in-law (Gurjit), via phone. They were both agreeable to the time. No additional needs at this time.
[2020-06-09 10:29] VITALS: BP 128/67; PULSE 90; TEMP 97.7
[2020-06-09 11:06] VITALS: BP 134/75; PULSE 79; TEMP 97.9
--- NOTE | 2020-06-09 12:35 | NUR ---
Patient transfering back to [facility]. Transfered to wheelchair independently. Continues to deny pain. Denies further needs at this time. INT discontinued, catheter tip intact.
== END 2020-06-09 12:35 | DRG 476 ==
LOC: INPTSU 06-06 09:57 → SURG 06-06 10:30
PROVIDERS: ADMIT Orthopaedic Surgery
PROC: 0Y6J0Z3 Detachment at Left Lower Leg, Low, Open Approach (ICD-10-PCS; principal; 2020-06-06 13:15)
DX: T87.81 Dehiscence of amputation stump (principal); M19.90 Unspecified osteoarthritis, unspecified site; J45.909 Unspecified asthma, uncomplicated; J44.9 Chronic obstructive pulmonary disease, unspecified; K21.9 Gastro-esophageal reflux disease without esophagitis; E78.00 Pure hypercholesterolemia, unspecified; M06.9 Rheumatoid arthritis, unspecified; Z86.73 Personal history of transient ischemic attack (TIA), and cerebral infarction without residual deficits
CPT/HCPCS: J0690; J1100; J1885; J2250; J2405; J2704; J2795; J3010; J7030; L1830

== ENCOUNTER → 2020-08-09 | Outpatient (CLI) | payer MEDICARE, OTHER ==
[~2020-08-09] MED LIST changes: +ASPIRIN 32325 MG/TAB PO; +JUVEN1 PDR PO; +NORCO 325 MG-7.1 TAB PO; +SENOKOT S 50 MG1 TAB PO
== END ==
LOC: ZCOL.LAB 17:41
DX: L89.92 Pressure ulcer of unspecified site, stage 2 (principal)